=== PATIENT | female | born 1975 | race Caucasian/White ===

== ENCOUNTER → 2017-05-26 12:43 | Outpatient (CLI) | payer BC, SELFPAY ==
--- NOTE | 2017-05-26 15:03 | US_ITS ---
US thyroid HISTORY: ITS.REASON: ENLARGED LYMPH NODE ORDERING PHYSICIAN: Daphnie Rivas PATIENT AGE: 42 years COMPARISON: None FINDINGS: Right lobe: 4.8 x 1.8 x 2.2 cm. There is a 13 mm well-circumscribed slightly hypoechoic nodule in the upper pole 15 mm mixed echogenic nodule in the lower pole well circumscribed. 13 mm somewhat less defined isoechoic nodule in the lower pole. Left lobe: 4.3 x 1.8 x 1.5 cm. 19 x 16 mm isoechoic nodule were circumscribed in the mid polar region In the right lateral neck there are small lymph nodes measuring 8 mm and 10 mm. IMPRESSION: Bilateral solid thyroid nodules as detailed above. No one particular nodule has malignant features. Recommend short-term follow-up in 6 months to confirm stability. Small nodes are present in the right neck region which may be better evaluated with CT if clinically warranted
== END ==
PROVIDERS: Family Provider Emergency Medicine; PCP Nurse Practitioner Family; Visit Provider Nurse Practitioner Family
DX: R59.0 Localized enlarged lymph nodes (principal)
CPT/HCPCS: 76536

== ENCOUNTER 2017-06-20 20:32 | Emergency (ER) | payer BC, SELFPAY ==
[2017-06-20 20:45] VITALS: BP 150/93; PULSE 113; RESP 20; TEMP 36.6; O2SAT 96; BMI 37.3
--- NOTE | 2017-06-20 21:10 | HMH.EDUTC ---
[facility] [place] Disposition Clinical Impression: Diarrhea Qualifiers: Diarrhea type: unspecified type Qualified Code(s): R19.7 - Diarrhea, unspecified Disposition: Home, Self-Care Condition on Discharge: Good Instructions: Diarrhea, Loperamide, Diarrhea (Alternative Therapy), Diarrhea (Alternative Therapy) Additional Instructions: ? Drink extra fluids with and between meals. If you have difficulty drinking, try very small amounts of water or suck on ice chips. ? Avoid fruit juices, as these do not replace minerals and can actually increase diarrhea. ? Children and adults can use sports drinks to replenish electrolytes. Younger children and infants should use products formulated for children, like oral rehydration solutions. ? Eat food in small amounts and let your stomach recover. ? Get lots of rest. You may feel tired or weak. ? Check with your doctor before taking medications or giving them to children. Never give aspirin to children or teenagers with a viral illness. This can cause Alec syndrome, a potentially life-threatening condition. Bulky foods such as peanut butter, bananas and dry toast may be easier for your stomach to tolerate Follow up with family doctor on Friday to see if results are complete REturn if needed Follow up with family doctor or ER in 12-48 hours if worsening of diarrhea or any blood noted in stool Referrals: Alberto Lim MD [Primary Care Provider] - Forms: Work/School Release Time of Disposition: 21:23 Medical Decision Making - Medical Records Medical records reviewed: Yes: I reviewed the patient's medical records. Vital Signs: 06/20/17 20:45 Temperature 97.8 F Temperature Source Temporal Artery Scan Pulse Rate [Right] 113 H Respiratory Rate 20 Blood Pressure [Right Arm] 150/93 Blood Pressure Mean [Right Arm] 112 Blood Pressure Source [Right Arm] Automatic Cuff Blood Pressure Position [Right Arm] Sitting 02 Sat by Pulse Oximetry 96 Oxygen Delivery Method Room Air - Ino Inquiry Pt receiving controlled substance: No Ino was queried for this patient: No - Reevaluation(s) Time: 21:19 Reevaluation #1: Patient had collected stool at home, diarrhea panel ordered and patient stool collected and sent to lab Patient advised to follow up with family doctor on Friday for results no eppisodes of diarrhea since arrival at [facility] no distress [facility] [place] HPI - General Stated complaint: stomach virus Mode of Arrival: Ambulatory Source of Information: Patient Limitations: No Limitations Description of Symptoms (Recalled from Triage Doc. by RN): DIARRHEA HEENT Symptoms (Recalled from RN notes): No Resp Symptoms (Recalled from RN notes): No Skin Symptoms (Recalled from RN notes): No MS Symptoms (Recalled from RN notes): No Functional Status (Recalled from RN notes): N - History of Present Illness Provider Complaint: Patient state that she began having diarrhea yesterday States that she has continued to have diarrhea State that she is not sure if she may have a stomach virus or what State that she collected a stool specimen at home State that she has not had any blood in her stool just loose and watery stool - Related Data Home Medications Medication Instructions Recorded Confirmed alprazolam 0.25 mg tablet 0.25 mg PO TID tab 05/15/17 aspirin 325 mg tablet 325 mg PO .QDAY tab 05/15/17 atenolol 50 mg tablet 50 mg NG-TUBE Q24H tab 05/15/17 atorvastatin 10 mg tablet 10 mg PO ONCE 05/15/17 epinephrine 0.3 mg/0.3 mL 0.3 mg IM ONCE 05/15/17 injection, auto-injector escitalopram 20 mg tablet 20 mg PO .QDAY tab 05/15/17 fluticasone 50 mcg/actuation nasal 50 mcg INTRANASAL BID PRN 05/15/17 spray,suspension ibuprofen 600 mg tablet 600 mg PO Q4-6H PRN 05/15/17 meclizine 25 mg tablet 25 mg PO BID 05/15/17 pantoprazole 40 mg tablet,delayed 40 mg PO QAM 05/15/17 release pramoxine 1 % topical foam 1 applic VT BID 05/15/17 ranitidine 150 mg tablet 150 mg PO BID tab 05/15/17 sammie
[2017-06-20 21:16] VITALS: BP 150/93; PULSE 110; RESP 20; TEMP 36.6
--- NOTE | 2017-06-20 21:17 | ED_ITS ---
[facility] [place] Clinical Impression: Diarrhea Qualifiers: Diarrhea type: unspecified type Qualified Code(s): R19.7 - Diarrhea, unspecified Disposition: Home, Self-Care Condition on Discharge: Good Instructions: Diarrhea, Loperamide, Diarrhea (Alternative Therapy), Diarrhea ( Alternative Therapy) Additional Instructions: ? Drink extra fluids with and between meals. If you have difficulty drinking, try very small amounts of water or suck on ice chips. ? Avoid fruit juices, as these do not replace minerals and can actually increase diarrhea. ? Children and adults can use sports drinks to replenish electrolytes. Younger children and infants should use products formulated for children, like oral rehydration solutions. ? Eat food in small amounts and let your stomach recover. ? Get lots of rest. You may feel tired or weak. ? Check with your doctor before taking medications or giving them to children. Never give aspirin to children or teenagers with a viral illness. This can cause Alfa?s syndrome, a potentially life-threatening condition. Bulky foods such as peanut butter, bananas and dry toast may be easier for your stomach to tolerate Follow up with family doctor on Friday to see if results are complete REturn if needed Follow up with family doctor or ER in 12-48 hours if worsening of diarrhea or any blood noted in stool Referrals: Alberto Lim MD [Primary Care Provider] - Forms: Work/School Release Time of Disposition: 21:23 Medical Decision Making - Medical Records Medical records reviewed: Yes: I reviewed the patient's medical records. Vital Signs: 06/20/17 20:45 Temperature 97.8 F Temperature Source Temporal Artery Scan Pulse Rate [Right] 113 H Respiratory Rate 20 Blood Pressure [Right Arm] 150/93 Blood Pressure Mean [Right Arm] 112 Blood Pressure Source [Right Arm] Automatic Cuff Blood Pressure Position [Right Arm] Sitting 02 Sat by Pulse Oximetry 96 Oxygen Delivery Method Room Air - Ino Inquiry Pt receiving controlled substance: No Ino was queried for this patient: No - Reevaluation(s) Time: 21:19 Reevaluation #1: Patient had collected stool at home, diarrhea panel ordered and patient stool collected and sent to lab Patient advised to follow up with family doctor on Friday for results no eppisodes of diarrhea since arrival at [facility] no distress [facility] [place] - General Stated complaint: stomach virus Mode of Arrival: Ambulatory Source of Information: Patient Limitations: No Limitations Description of Symptoms (Recalled from Triage Doc. by RN): DIARRHEA HEENT Symptoms (Recalled from RN notes): No Resp Symptoms (Recalled from RN notes): No Skin Symptoms (Recalled from RN notes): No MS Symptoms (Recalled from RN notes): No Functional Status (Recalled from RN notes): N - History of Present Illness Provider Complaint: Patient state that she began having diarrhea yesterday States that she has continued to have diarrhea State that she is not sure if she may have a stomach virus or what State that she collected a stool specimen at home State that she has not had any blood in her stool just loose and watery stool - Related Data Home Medications Medication Instructions Recorded Confirmed alprazolam 0.25 mg tablet 0.25 mg PO TID tab 05/15/17 aspirin 325 mg tablet 325 mg PO .QDAY tab 05/15/17 atenolol 50 mg tablet 50 mg NG-TUBE Q24H tab 05/15/17 atorvastatin 10 mg
[2017-06-21 00:29] LABS: Adenovirus F 40/41, stool Not Detected (NotDetected); Astrovirus Not Detected (NotDetected); Campylobacter Not Detected (NotDetected); Clostridium Difficile A/B, PCR Not Detected (NotDetected); Cyclospora Cayetanesis Not Detected (NotDetected); Entamoeba histolytica Not Detected (NotDetected); Enteroaggregative E coli Not Detected (NotDetected); Enteropathogenic E coli Not Detected (NotDetected); Enterotoxigenic E coli Not Detected (NotDetected); Giardia lamblia Not Detected (NotDetected); Norovirus Not Detected (NotDetected); Plesimonas Shigalloides, PCR Not Detected (NotDetected); Rotavirus A Not Detected (NotDetected); Salmonella, PCR Not Detected (NotDetected); Sapovirus Not Detected (NotDetected); Shiga-like toxin E coli Not Detected (NotDetected); Shigella Enterovasive E coli Not Detected (NotDetected); Vibrio Cholerae Not Detected (NotDetected); Vibrio, PCR Not Detected (NotDetected); Yersinia Entercolitica, PCR Not Detected (NotDetected)
[2017-06-21 00:33] LABS: Cryptosporidium Detected (NotDetected)
== END 2017-06-20 21:24 | disposition home or self-care (01) ==
PROVIDERS: Emergency Provider Nurse Practitioner; Family Provider Emergency Medicine; PCP Emergency Medicine
DX: R19.7 Diarrhea, unspecified (principal); K21.9 Gastro-esophageal reflux disease without esophagitis; E78.5 Hyperlipidemia, unspecified; F17.210 Nicotine dependence, cigarettes, uncomplicated; F32.9 Major depressive disorder, single episode, unspecified; Z79.899 Other long term (current) drug therapy; Z79.82 Long term (current) use of aspirin; Z88.6 Allergy status to analgesic agent; Z88.1 Allergy status to other antibiotic agents
CPT/HCPCS: 87507; 99202

== ENCOUNTER → 2017-11-10 08:34 | Outpatient (CLI) | payer BC, SELFPAY ==
--- NOTE | 2017-11-10 08:34 | CA_ITS ---
PROCEDURE: 2-D M-mode and color Doppler study INDICATIONS FOR THE TEST: Chest pain X COPD Heart Murmur Tobacco SmokingX PalpitationsX FatigueX Syncope Edema Hypertension Diabetes Mellitus Rheumatic Fever SOB DOEXObesityXHyperlipidemia Family History HD Additional History PATIENT INFORMATION HEIGHT:63 WEIGHT:213 GENDER: Female B/P:111/52 2-D/M-MODE INTERPRETATION: 2-D MEASUREMENTS OBSERVED VALUES IN CMS Right Ventricular Dimension (RVDd) 2.2 Interventricular Septum (Thickness)(IVsd) .7 Left Ventricular Internal Dimensions(LVIDd) 5.5 Left Ventricular Posterior Wall (Thickness)(LVPWd) .9 Aortic Root 3.1 Aortic Cusp Separation 1.5 Left Atrial Dimensions (LAD) 3.4 2D 1. Left atrium is qualitatively mildly enlarged, left ventricle is normal size, there is no concentric left ventricular hypertrophy, visually estimated ejection fraction 55% with no obvious regional wall motion abnormality. 2. The right atrium and right ventricle are relatively normal size and function. 3. The aortic, mitral and tricuspid valvular grossly normal. 4. The pulmonic valve is poorly visualized. 5. No significant pericardial effusion noted. DOPPLER INTERROGATION: Doppler interrogation of the aortic, mitral and tricuspid valvular presence of mild mitral and tricuspid regurgitation, tricuspid and jet velocity insufficient for calculation of the right ventricular systolic pressure, diastolic parameters are inconclusive. CONCLUSION: 1. Mildly enlarged left atrium, normal left ventricular size, visually estimated ejection fraction 55% with no obvious regional wall motion abnormality, diastolic parameters are inconclusive. 2. Mild mitral and tricuspid regurgitation 3. No significant pericardial effusion noted.
== END ==
PROVIDERS: Family Provider Emergency Medicine; PCP Internal Medicine; Visit Provider Internal Medicine
DX: R07.9 Chest pain, unspecified (principal); R00.2 Palpitations; R06.83 Snoring; R40.0 Somnolence; R53.83 Other fatigue; E66.9 Obesity, unspecified; F17.200 Nicotine dependence, unspecified, uncomplicated; R63.5 Abnormal weight gain
CPT/HCPCS: 93306; 95806

== ENCOUNTER → 2017-12-23 10:44 | Outpatient (CLI) | payer BC, SELFPAY ==
--- NOTE | 2017-12-23 10:49 | XR_ITS ---
XR hip LT 2-3V w/pelvis HISTORY: ITS.REASON: S/P FALL, LT HIP PAIN ORDERING PHYSICIAN: Thien Lam PATIENT AGE: 42 years COMPARISON: None FINDINGS: No fracture or dislocation is evident. No significant degenerative change. No lytic or blastic change. Unremarkable soft tissues. There is an os acetabulum as a normal variant. There is mild sclerosis of left SI joint. Small calcific density is present along the lateral aspect of the proximal thigh within the soft tissues IMPRESSION: No acute finding
== END ==
PROVIDERS: PCP Internal Medicine; Visit Provider Internal Medicine
DX: M25.552 Pain in left hip (principal); R10.2 Pelvic and perineal pain
CPT/HCPCS: 73502

== ENCOUNTER → 2018-01-01 09:19 | Outpatient (CLI) | payer BC, SELFPAY ==
--- NOTE | 2018-01-01 09:24 | US_ITS ---
US breast LT complete INDICATION: Palpable abnormality in the upper left chest ORDERING PHYSICIAN: Thien Lam PATIENT AGE: 42 years COMPARISON: None TECHNIQUE: Complete ultrasound left breast with axilla FINDINGS: There is an oval area of slight decreased echogenicity which is homogeneous within the subcutaneous tissues in the left breast toward the upper chest. This measures 1.8 x 1.7 x 0.6 cm. No posterior shadowing. This is likely related to a lipoma. The breast is an otherwise unremarkable appearance. IMPRESSION: Palpable abnormality corresponds to what appears to represent a lipoma BI-RADS Category: 2 Benign Finding(s) Negative ultrasound does not exclude the possibility of malignancy in the breast. Consider mammography for further evaluation if clinically warranted (A letter has been sent to the patient regarding results of the study.)
== END ==
PROVIDERS: Family Provider Emergency Medicine; PCP Internal Medicine; Visit Provider Internal Medicine
DX: N63.21 Unspecified lump in the left breast, upper outer quadrant (principal)
CPT/HCPCS: 76641

== ENCOUNTER → 2018-02-03 11:17 | Outpatient (CLI) | payer BC, SELFPAY ==
--- NOTE | 2018-02-03 11:24 | XR_ITS ---
EXAM: XR lumbar spine min 4V HISTORY: ITS.REASON: BACK PAIN ORDERING PHYSICIAN: Thien Lam PATIENT AGE: 42 years COMPARISON: None FINDINGS: Normal alignment. No fracture or dislocation. No lytic or blastic change. Mild endplate osteophytes are present at L4 and L5. There is sclerosis of the inferior aspect of the SI joint on the left. No lytic or blastic change. IMPRESSION: 1. Mild lumbar spondylosis. 2. Sclerosis of left SI joint
== END ==
PROVIDERS: PCP Internal Medicine; Visit Provider Internal Medicine
DX: M54.89 Other dorsalgia (principal)
CPT/HCPCS: 72110

== ENCOUNTER → 2018-04-28 15:12 | Outpatient (POV) | payer BC, SELFPAY | PROVIDERS: Visit Provider Dermatology | DX: Z00.00 Encounter for general adult medical examination without abnormal findings (principal) ==

== ENCOUNTER → 2018-05-21 12:47 | Outpatient (CLI) | payer BC, SELFPAY ==
--- NOTE | 2018-05-21 13:27 | US_ITS ---
US transvaginal HISTORY: Pelvic pain ITS.REASON: PELVIC PAIN ORDERING PHYSICIAN: Thien Lam PATIENT AGE: 42 years Comparison: None FINDINGS: There has been a prior hysterectomy. Vaginal cuff has an unremarkable appearance. The left ovary is 2.4 x 1.4 cm in the right ovary is 2.3 x 2.4 cm. No adnexal mass. No pelvic fluid. IMPRESSION: Prior hysterectomy otherwise unremarkable pelvic ultrasound
--- NOTE | 2018-05-21 13:27 | US_ITS ---
US thyroid HISTORY: Follow-up thyroid nodules ITS.REASON: GOITER ORDERING PHYSICIAN: Thien Lam PATIENT AGE: 42 years Comparison: 05/26/2017 FINDINGS: The isthmus of the thyroid is thickened at 6 mm. The right lobe is 4.3 x 1.6 x 2.1 cm. There is a hypoechoic nodule in the upper pole which measures 13 x 10 mm not significantly changed. In the mid polar region there is a solid-appearing nodule at 1 cm unchanged. In the lower pole there is a mixed cystic and solid nodule which measures 1 cm. This nodule was not demonstrated on the previous exam. There is an additional 9 mm mixed nodule in the lower pole unchanged from previous study. An additional 5 mm hypoechoic nodule is present in the lower pole not readily apparent on the previous exam. The left lobe is 3.5 x 1.8 x 1.8 cm. There is a 2.2 cm solid-appearing nodule in the mid polar region not significant change. IMPRESSION: Bilateral thyroid nodules as described above most of which are unchanged. A new partially cystic nodules present in the lower polar region on the right measuring 1 cm. Continued follow-up is recommended
== END ==
PROVIDERS: PCP Internal Medicine; Visit Provider Internal Medicine
DX: E04.1 Nontoxic single thyroid nodule (principal); R10.2 Pelvic and perineal pain; Z85.43 Personal history of malignant neoplasm of ovary
CPT/HCPCS: 76536; 76830

== ENCOUNTER → 2018-06-16 10:11 | Outpatient (POV) | payer BC, SELFPAY | PROVIDERS: Visit Provider Otolaryngology | DX: Z00.00 Encounter for general adult medical examination without abnormal findings (principal) ==

== ENCOUNTER → 2018-07-23 08:16 | Outpatient (CLI) | payer BC, SELFPAY ==
--- NOTE | 2018-07-23 08:18 | CT_ITS ---
CT abdomen pelvis wo con CLINICAL INDICATION: ITS.REASON: RT FLANK PAIN, HEMATURIA ORDERING PHYSICIAN: Thien Lam PATIENT AGE: 43 years COMPARISON: 08/28/2011 TECHNIQUE: Axial images obtained with sagittal and coronal reformats. All CT scans at the facility use one or more dose reduction, viz: automated exposure control, ma/kV adjustment per patient size (including targeted exams where dose is matched to indication, i.e. head), or iterative reconstruction technique. PROCEDURE: Oral Contrast: None IV Contrast: None . FINDINGS: No acute finding in the lung bases. Fatty liver. Unremarkable appearing gallbladder. The spleen, adrenal glands, and pancreas have an unremarkable unenhanced CT appearance. No renal or ureteral calculi. No evidence of appendicitis or intestinal obstruction or free air. Post hysterectomy changes. No pelvic mass abnormal fluid collection or focal inflammatory change of the pelvis. No acute bony findings. There is tiny umbilical hernia containing fat IMPRESSION: No acute abdominal or pelvic findings. Fatty liver
== END ==
PROVIDERS: PCP Internal Medicine; Visit Provider Internal Medicine
DX: R10.9 Unspecified abdominal pain (principal); N20.0 Calculus of kidney; R31.9 Hematuria, unspecified
CPT/HCPCS: 74176

== ENCOUNTER → 2018-11-21 11:27 | Outpatient (CLI) | payer BC, SELFPAY ==
[2018-11-21 14:22] LABS: Alanine Aminotransferase 43 U/L (12-78); Albumin Level 3.9 gm/dL (3.4-5.0); Albumin/Globulin Ratio 1.1 (1.1-1.8); Alkaline Phosphatase 76 U/L (46-116); Anion Gap 14.2 mEq/L (5-15); Aspartate Amino Transferase 18 U/L (15-37); Bilirubin,Total 0.3 mg/dL (0.2-1.0); Blood Urea Nitrogen 16 mg/dL (7-18); Calcium 9.4 mg/dL (8.5-10.1); Carbon Dioxide 29 mmol/L (21.0-32.0); Chloride 103 mmol/L (98-107); Chol/HDL Ratio 5.9 (1-3.5); Cholesterol 252 mg/dL (140-200); Creatinine,Serum 0.77 mg/dL (0.55-1.02); Estimated Glomerular Filt Rate 81 ml/min (>60); Ferritin 106 ng/mL (8-388); Free T4 (Free Thyroxine) 0.96 ng/dl (0.76-1.46); GFR (African American) 99 ML/MIN (>60); Globulin 3.7 gm/dl (1.3-3.2); Glucose 67 mg/dL (74-106); HDL Cholesterol 43 mg/dL (29-89); LDL Cholesterol 170 mg/dL (0-130); Potassium 4.2 mmoL/L (3.5-5.1); Sodium 142 mmol/L (136-145); Thyroid Stimulating Hormone 0.46 uIU/ml (0.358-3.740); Total Protein,Serum 7.6 gm/dL (6.4-8.2); Triglycerides 194 mg/dL (30-200); VLDL Cholesterol 39 mg/dL (0-40)
[2018-11-22 17:02] LABS: Triiodothyronine (T3) Free 3.6 pg/mL (2.0-4.4)
== END ==
LOC: LAB 11:28 → LAB.DROPOF 11-23 10:01
PROVIDERS: Visit Provider Internal Medicine
DX: E04.9 Nontoxic goiter, unspecified (principal); E78.5 Hyperlipidemia, unspecified; H81.03 Meniere's disease, bilateral; K21.9 Gastro-esophageal reflux disease without esophagitis; I49.49 Other premature depolarization; D50.9 Iron deficiency anemia, unspecified; F41.9 Anxiety disorder, unspecified
CPT/HCPCS: 80053; 80061; 82728; 84439; 84443; 84481

== ENCOUNTER → 2018-11-25 12:45 | Outpatient (CLI) | payer BC, SELFPAY ==
--- NOTE | 2018-11-25 12:47 | US_ITS ---
PROCEDURE: US BREAST RT COMPLETE CLINICAL INDICATION: BREAST NODULE AXILLARY AREA COMPARISON: BREASTLT US breast LT complete from 01/01/2018 FINDINGS: No malignant appearing mass. No cysts are evident. There are scattered hyperechoic foci in the subcutaneous tissue at 3 o'clock measuring 6 x 4 mm and at 9 o'clock measuring 8 x 6 mm consistent with small lipomas. Palpable abnormality is reported in the axilla however no sonographic abnormalities are apparent. There is a 2 cm lymph node in the right axilla. IMPRESSION: Unremarkable ultrasound of the right breast and axilla. Consider CT for further evaluation if there are indeed palpable nodules in the axilla Dictated by: Bonilla Tafoya MD 11/25/2018 14:10 Signed by: <Electronically signed by Bonilla Tafoya MD in [place]> 11/25/2018 14:10
== END ==
PROVIDERS: PCP Internal Medicine; Visit Provider Internal Medicine
DX: N63.11 Unspecified lump in the right breast, upper outer quadrant (principal)
CPT/HCPCS: 76641

== ENCOUNTER → 2018-12-09 13:27 | Outpatient (CLI) | payer BC, SELFPAY ==
--- NOTE | 2018-12-09 13:34 | CT_ITS ---
PROCEDURE: CT CHEST WO CON CLINICAL INDICATION: RT AXILLARY NODULE COMPARISON: No exams were available for comparison TECHNIQUE: Axial images obtained with sagittal and coronal reformats. All CT scans at the facility use one or more dose reduction, viz: automated exposure control, ma/kV adjustment per patient size (including targeted exams where dose is matched to indication, i.e. head), or iterative reconstruction technique. FINDINGS: There is a 1.4 cm hypodense nodule within the right lobe of the thyroid gland. A BB is placed within the palpable area of the right axillary region. No discrete soft tissue abnormality is evident at this region. There are only a few small axillary lymph nodes present. No dominant adenopathy. No abnormal fluid collection. Small nodes are present in both axilla. No mediastinal or hilar mass or adenopathy. There is an 8 mm noncalcified nodule in the superior segment of the right lower lobe. A calcified granuloma is present in the superior segment of the left lower lobe. The remaining lungs are clear. Upper abdominal images are unremarkable. No acute bony findings. IMPRESSION: 1. No evidence of axillary adenopathy or mass. No abnormalities that would correspond to the placed BB in the right axillary region 2. 8 mm noncalcified nodule right lower lobe. Suggest 6 month follow-up in this patient with a positive smoking history Dictated by: Bonilla Tafoya MD 12/10/2018 06:43 Signed by: <Electronically signed by Bonilla Tafoya MD in [place]> 12/10/2018 06:43
== END ==
PROVIDERS: PCP Internal Medicine; Visit Provider Internal Medicine
DX: N63.10 Unspecified lump in the right breast, unspecified quadrant (principal)
CPT/HCPCS: 71250

== ENCOUNTER → 2019-04-12 08:00 | Outpatient (CLI) | payer BC, SELFPAY ==
--- NOTE | 2019-04-12 08:04 | CT_ITS ---
PROCEDURE: CT CHEST WO CON CLINICAL INDICATION: RT LUNG NODULE follow-up COMPARISON: CT CHEST WO CON from 12/09/2018 TECHNIQUE: Axial images obtained with sagittal and coronal reformats. All CT scans at the facility use one or more dose reduction, viz: automated exposure control, ma/kV adjustment per patient size (including targeted exams where dose is matched to indication, i.e. head), or iterative reconstruction technique. FINDINGS: HEART: Unremarkable. Normal heart size. No significant pericardial effusion. MEDIASTINAL AND HILAR STRUCTURES: No mediastinal or hilar mass evident. No dominant adenopathy. PULMONARY ARTERIES: No pulmonary embolus evident. AORTA: No acute finding. No thoracic aortic aneurysm or dissection evident LUNGS:The lung jacobs are well expanded. There is a stable 7 8 mm noncalcified nodule superior segment right lower lobe subpleural location. There is a small calcified granuloma left lower lobe. PLEURAL SPACES: No significant effusion. No evidence of pneumothorax. BONY STRUCTURES: No acute bony abnormalities apparent. LYMPH NODES: No enlarged lymph nodes evident. UPPER ABDOMEN: Unremarkable. ADDITIONAL FINDINGS: There is a stable 1.4 cm hypodense lesion right lobe of the thyroid IMPRESSION: Stable noncalcified nodule right lower lobe with no other significant abnormality noted. Consider no other follow-up CT scan of the chest in 6 to 12 months in view of the smoking history Dictated by: Dr. Jc Bello MD 04/12/2019 14:[address] Jc Bello MD in [place] 04/12/2019 14:00
== END ==
PROVIDERS: PCP Internal Medicine; Visit Provider Internal Medicine
DX: R91.1 Solitary pulmonary nodule (principal)
CPT/HCPCS: 71250

== ENCOUNTER → 2019-09-27 11:39 | Outpatient (CLI) | payer BC, SELFPAY ==
--- NOTE | 2019-09-27 11:46 | XR_ITS ---
PROCEDURE: XR LUMBAR SPINE MIN 4V CLINICAL INDICATION: LOW BACK PAIN COMPARISON: [id number] XR lumbar spine min 4V from 02/03/2018 FINDINGS: No fracture or dislocation. Normal alignment. Minimal ventral osteophytes at L1-L2 L3-L4 and L5. Degenerative disc disease is noted in the lower thoracic spine. There is sclerosis of the left SI joint. Small calcification overlies the mid aspect of the left kidney suggesting small left renal stone at 3 mm. IMPRESSION: Degenerative changes, no acute finding Possible left nephrolithiasis Dictated by: Bonilla Tfaoya MD 09/27/2019 12:08 Electronically signed by Bonilla Tafoya MD in [place] 09/27/2019 12:08
== END ==
PROVIDERS: PCP Internal Medicine; Visit Provider Internal Medicine
DX: M54.5 Low back pain (principal)
CPT/HCPCS: 72110

== ENCOUNTER → 2019-11-02 13:03 | Outpatient (CLI) | payer BC, SELFPAY ==
--- NOTE | 2019-11-02 13:09 | MM_ITS ---
PROCEDURE: MM DIG SCREENING MAMM BI W/CAD Digital Breast Tomosynthesis Included CLINICAL INDICATION: SCREENING Screening for breast cancer COMPARISON: DIGMAMMS MAMMOGRAM SCREEN-DIRECTOR EDUCATION N/C from 11/22/2005 DIGMAMMDX MAMMOGRAM DX-DIRECTOR EDUCATION N/C from 06/23/2007 DMDB DIGITAL MAMM-DX BILATERAL from 07/19/2010 US BREAST RT COMPLETE from 11/25/2018 TECHNIQUE: Standard CC and MLO images and 3D Tomosynthesis was obtained. R2 CAD reviewed. FINDINGS: There is average fibroglandular tissue. The breast tissue density has decreased compared to the multiple previous exams. No malignant appearing mass or malignant-appearing microcalcification is evident. There is a 12 by 5 mm nodular opacity in the upper central aspect of the right breast. This may been present previously but obscured by overlying fibroglandular tissue. Spot compression views and ultrasound is recommended. No other significant anomalies are evident. IMPRESSION: BI-RAD Category: 0 Need Additional Imaging Evaluation FOLLOW-UP: IMM Immediate Follow-up Recommended (A letter has been sent to the patient regarding results of the study.) Dictated by: Bonilla Tafoya MD 11/02/2019 14:26 Electronically signed by Bonilla Tafoya MD in [place] 11/02/2019 14:26
--- NOTE | 2019-11-02 13:11 | CT_ITS ---
PROCEDURE: CT CHEST WO CON CLINICAL INDICATION: RT LUNG NODULE Follow-up lung nodule, increasing shortness of air COMPARISON: CT CHEST WO CON from 04/12/2019 TECHNIQUE: Axial images obtained with sagittal and coronal reformats. All CT scans at the facility use one or more dose reduction, viz: automated exposure control, ma/kV adjustment per patient size (including targeted exams where dose is matched to indication, i.e. head), or iterative reconstruction technique. FINDINGS: 1.5 cm hypodense nodule involves the right lobe of the thyroid gland and does not appear significantly changed. There is a small precarinal lymph node which is stable. Normal heart size. There is a 7 mm noncalcified nodule in the superior segment of the right lower lobe which is not significantly changed. Calcified nodules noted on the left. No new nodules are evident. No acute bony anomalies. There is a nodular opacity noted in the right breast laterally at 12 mm. Please see mammogram report of the same day for further recommendations. Upper abdominal images show mild fatty liver IMPRESSION: . 1. No acute finding. 2. Stable 7 mm nodule in the right upper lobe. 3. Other nonacute findings as described above. Dictated by: Bonilla Tafoya MD 11/03/2019 10:45 Electronically signed by Bonilla Tafoya MD in [place] 11/03/2019 10:45
== END ==
PROVIDERS: PCP Internal Medicine; Visit Provider Internal Medicine
DX: Z12.31 Encounter for screening mammogram for malignant neoplasm of breast (principal); R91.1 Solitary pulmonary nodule
CPT/HCPCS: 71250; 77063; 77067

== ENCOUNTER → 2019-11-12 13:46 | Outpatient (CLI) | payer BC, SELFPAY ==
--- NOTE | 2019-11-12 13:52 | US_ITS ---
PROCEDURE: MM DIG MAMM DX UNILAT RT CAD Digital Breast Tomosynthesis Included CLINICAL INDICATION: R BREAST NODULE Abnormal mammogram COMPARISON: MG DIGMAMMDX MAMMOGRAM DX-ARCHITECTURE INTERNSHIP N/C from 06/23/2007 MG DMDB DIGITAL MAMM-DX BILATERAL from 07/19/2010 US US BREAST RT COMPLETE from 11/25/2018 MG MM DIG SCREENING MAMM BI W/CAD from 11/02/2019 US US BREAST RT COMPLETE from 11/12/2019 TECHNIQUE: Problem solving views along with right breast ultrasound FINDINGS: Spot views of the right breast in right MLO view demonstrates a persistent 15 x 11 x 7. The margins are fairly well-circumscribed. There is an additional 15 mm area of increased density in the inferior right breast probably due to overlapping fibroglandular tissue as noted on the mL view. Would recommend spot compression when the patient returns of this area Right breast ultrasound: At 12 o'clock there is a hypoechoic nodule measuring approximately 10 mm which may correspond to the mammographic abnormality. On certain images this shows some posterior acoustical shadowing. This is wider than tall but is not well-defined. This is mildly suspicious and biopsy is recommended. IMPRESSION: Suspicious 10 mm nodule in the 12 o'clock region of the right breast. Ultrasound-guided mammotome biopsy recommended. Also recommend spot compression view of the inferior nodular density as seen on the mL view BI-RAD Category: 4 Suspicious Abnormality - Biopsy Considered FOLLOW-UP: BIO Biopsy Recommended (A letter has been sent to the patient regarding results of the study.) Dictated b Bonilla Tafoya MD 11/18/2019 18:32 Bonilla Tafoya MD in [place] 11/18/2019 18:32
== END ==
PROVIDERS: PCP Internal Medicine; Visit Provider Internal Medicine
DX: R92.8 Other abnormal and inconclusive findings on diagnostic imaging of breast (principal)
CPT/HCPCS: 76641; 77061; 77065; G0279

== ENCOUNTER 2019-11-15 14:06 | Emergency (ER) | payer BC, SELFPAY ==
[2019-11-15 14:54] VITALS: BMI 38.4
[2019-11-15 15:01] VITALS: BP 109/68; PULSE 67; RESP 20; TEMP 36.6; O2SAT 99; BMI 38.4
--- NOTE | 2019-11-15 15:24 | HMH.EDUTC ---
[facility] Impression: Viral syndrome Disposition: Home, Self-Care Condition on Discharge: Good Instructions: DI for Chronic Fatigue Syndrome, Preventing the Spread of Coronavirus Discharge Instructions Additional Instructions: Drink plenty of fluids. Take tylenol for pain or fever. Take the medications as directed. Follow up with your regular doctor. GO TO THE ER FOR ANY WORSENING SYMPTOMS FOLLOW THE DIRECTIONS ON THE COVID-19 HAND OUT THAT WE GAVE YOU REGARDING SELF-ISOLATION UNTIL YOU KNOW YOUR COVID-19 RESULTS Prescriptions: Albuterol Sulfate [Albuterol Sulfate Hfa] 2 puffs IH Q6HP PRN 30 Days #1 [email or web address] PRN Reason: Shortness Of Breath Transmission Status: Received by [facility] #[id number] Amoxicillin/Potassium Clav [Augmentin 875-125 Tablet] 1 tab PO Q12H 10 Days #20 tab Transmission Status: Received by [facility] #[id number] Referrals: Thien Lam [Primary Care Provider] - Time of Disposition: 15:26 Medical Decision Making - Medical Records Medical records reviewed: No: I reviewed the patient's medical records. - Ino Inquiry Pt receiving controlled substance: No Vital Signs: 11/15/19 15:01 11/15/19 15:42 Temperature 97.9 F 97.9 F Temperature Source Oral Pulse Rate 67 Pulse Rate [Right Brachial] 67 Respiratory Rate 20 20 Blood Pressure 109/68 L Blood Pressure [Right Arm] 109/68 L Blood Pressure Mean [Right Arm] 81 Blood Pressure Source [Right Arm] Automatic Cuff Blood Pressure Position [Right Arm] Sitting 02 Sat by Pulse Oximetry 99 Oxygen Delivery Method Room Air - Lab Data Lab results reviewed: Yes: I reviewed the patient's lab results. Orders (Tests/Meds): ORDERS Category Date Time Status SARS-CoV-2, CARLYN Stat Lab 11/15/19 15:05 Received [facility] [place] - General Stated complaint: sob, FEVER Time Seen by Provider: 11/15/19 15:24 Mode of Arrival: Ambulatory Source of Information: Patient Limitations: No Limitations Description of Symptoms (Recalled from Triage Doc. by RN): PATIENT C/O SHORTNESS OF BREATH, DRY COUGH, PLEURITIC PAIN AND RUNNY NOSE SINCE 11/05. PATIENT RETURNED FROM [place] ON 11/03. HER 'S COVID ANTIBODY WAS RECENTLY POSITIVE. HEENT Symptoms (Recalled from RN notes): No Resp Symptoms (Recalled from RN notes): No Skin Symptoms (Recalled from RN notes): No MS Symptoms (Recalled from RN notes): No Functional Status (Recalled from RN notes): WNL - History of Present Illness Provider Complaint: She c/o body aches, cough, fever up to 102, shortness of breath, and generally feeling very bad for the past 3 days. She denies any known exposure to COVID-19, but she did travel to [place] last week. - Related Data Home Medications Medication Instructions Recorded Confirmed aspirin 325 mg tablet 325 mg PO .QDAY tab 05/15/17 05/24/19 pantoprazole 40 mg tablet,delayed 40 mg PO QAM 05/15/17 05/24/19 release atenoloL [Atenolol 50mg Tab] 50 mg PO DAILY 02/13/19 05/24/19 alprazolam 0.25 mg tablet 0.25 mg PO QID tab 05/24/19 05/24/19 atorvastatin 10 mg tablet 10 mg PO DAILY tab 05/24/19 05/24/19 fluticasone propionate 50 2 spray INTRANASAL DAILY 05/24/19 05/24/19 mcg/actuation nasal spray,suspension meclizine 25 mg tablet 25 mg PO BID PRN 05/24/19 05/24/19 Previous Rx's Medication Instructions Recorded carbamazepine 100 mg chewable 100 mg PO BID #60 tab 05/24/19 tablet Benzonatate [Tessalon Perle 100mg 100 mg PO TID #30 cap 06/24/19 Cap] cephALEXin [Keflex 500mg Cap] 500 mg PO TID #30 cap 06/24/19 predniSONE [Prednisone 20mg 20 mg PO BID #10 tab 06/24/19 Tab] Brompheniramine/Pseudoephed/Dm 5 ml PO Q6HP PRN #240 syrup 06/27/19 [Bromfed Dm Cough Syrup] Albuterol Sulfate [Albuterol 2 puffs IH Q6HP PRN 30 Days #1 11/15/19 Sulfate Hfa] hfa.aer.ad Amoxicillin/Potassium Clav 1 tab PO Q12H 10 Days #20 tab 11/15/19 [Augmentin 875-125 Tablet] Allergies Allergy/AdvReac Type S
[2019-11-15 15:42] VITALS: BP 109/68; PULSE 67; RESP 20; TEMP 36.6; O2SAT 99
[2019-11-17 13:21] LABS: Covid-19 Nasal PCR Sendout Lex Not Detected
== END 2019-11-15 15:47 | disposition home or self-care (01) ==
PROVIDERS: Emergency Provider Nurse Practitioner Family; PCP Internal Medicine
DX: B34.9 Viral infection, unspecified (principal); Z20.828 Contact with and (suspected) exposure to other viral communicable diseases; K21.9 Gastro-esophageal reflux disease without esophagitis; E78.5 Hyperlipidemia, unspecified; Z79.899 Other long term (current) drug therapy; F17.210 Nicotine dependence, cigarettes, uncomplicated; Z88.5 Allergy status to narcotic agent; Z88.8 Allergy status to other drugs, medicaments and biological substances
CPT/HCPCS: 99201; U0004

== ENCOUNTER → 2019-11-19 15:32 | Outpatient (CLI) | payer BC, SELFPAY ==
--- NOTE | 2019-11-19 15:35 | XR_ITS ---
PROCEDURE: XR CHEST 2V CLINICAL HISTORY: CHEST PAIN, SHORTNESS OF AIR COMPARISON: CR CXR CHEST(2 VIEWS-NOT PORTABLE) from 11/14/2016 CR CXR2V XR chest 2V from 10/23/2017 CR XR CHEST 2V from 06/27/[address] CHEST WO CON from 11/02/2019 FINDINGS: The cardiomediastinal silhouette and pulmonary vascularity are within normal limits. The lungs are clear without infiltrates, suspicious nodules, or pleural effusions. There is a calcified granuloma in the left lower lobe. No acute bony findings IMPRESSION: No acute findings. Dictated b Bonilla Tafoya MD 11/19/2019 16:13 Bonilla Tafoya MD in [place] 11/19/2019 16:13
--- NOTE | 2019-11-19 15:55 | ECG_ITS ---
APPROVED REPORT Exam: Resting ECG HR:67 bpm ECG Measurements Heart Rate 67 AXES AL 158 P 67 QRSd 88 QRS 48 QT 410 T 57 QTc 433 <Conclusion> Normal sinus rhythm Normal ECG Electronically signed by : Thien Lam, 11/19/2019 16:05:34
== END ==
PROVIDERS: PCP Internal Medicine; Visit Provider Internal Medicine
DX: R07.9 Chest pain, unspecified (principal); R06.02 Shortness of breath
CPT/HCPCS: 71046; 93005

== ENCOUNTER → 2019-11-25 09:47 | Outpatient (CLI) | payer BC, SELFPAY ==
--- NOTE | 2019-11-25 09:59 | CA_ITS ---
APPROVED REPORT EXAM: Comprehensive 2D, Doppler, and color-flow Echocardiogram Lubrication Supervisor: Jamila Ray RVT Ht: 5 ft 3 in Wt: 214lbs BSA: 1.99 BP: 109/68 mmHg Indications: SOA,CP,SMOKER,HLD,GERD 2D Dimensions LVOT 2.13 cm (M/F) 1.5-2.5 M-Mode Dimensions RVDd 2.29 cm (0.9-2.6) LVDd 4.93 cm (3.5-5.7) LVDs 2.97 cm (3.5-5.7) IVSd 1.15 cm (0.6-1.1) PWd 1.23 cm (0.6-1.1) EF (Teich) 70.10% FS 39.80% EDV (Teich) 114.40 mL ESV (Teich) 34.20 mL LV Diastology E/A Ratio 1.50 Mitral Valve MV A Velocity 63.00 (40-130 cm/s) Left Ventricle Left atrium is normal size, left ventricle is normal size, there is no concentric left ventricular hypertrophy, visually estimated ejection fraction 55% with no regional wall motion abnormality, diastolic parameters are within normal range. Right Ventricle Right atrium and right ventricle are normal size and contractility. Aortic Valve Aortic valve is grossly normal, there is no aortic stenosis or aortic insufficiency. Mitral Valve Mitral valve is grossly normal, there is trace mitral regurgitation. Tricuspid Valve Tricuspid valve grossly normal, there is trace tricuspid regurgitation. Pulmonic Valve Pulmonic valve is poorly visualized. Great Vessels Aortic root is normal size. Pericardium No significant pericardial effusion noted. Conclusion 1. Normal left ventricular size, preserved left ventricular systolic function, visually estimated ejection fraction 55% with no regional wall motion abnormality, diastolic parameters are within normal range. 2. Trace mitral and tricuspid regurgitation. 3. No significant pericardial effusion. Electronically signed by : Ethan Mclean, 11/25/2019 15:33:10
== END ==
PROVIDERS: PCP Internal Medicine; Visit Provider Internal Medicine
DX: R07.9 Chest pain, unspecified (principal); R06.02 Shortness of breath
CPT/HCPCS: 93306; 94010

== ENCOUNTER 2020-08-25 19:16 | Emergency (ER) | payer BC, SELFPAY ==
[2020-08-25 19:20] VITALS: BP 122/63; PULSE 77; RESP 20; TEMP 37.1; O2SAT 97; BMI 35.4
[2020-08-25 19:25] VITALS: BMI 35.5
--- NOTE | 2020-08-25 19:25 | XR_ITS ---
PROCEDURE INFORMATION: Exam: XR Left Foot Exam date and time: 08/25/2020 7:25 PM Age: 45 years old Clinical indication: Pain and injury or trauma; Blunt trauma; Left; Patient HX: Dropped something on foot, pain to top of foot TECHNIQUE: Imaging protocol: XR Left foot. Views: 3 or more views. COMPARISON: No relevant prior studies available. FINDINGS: Bones/joints: Moderate enthesopathy of the calcaneus. Soft tissues: Moderate forefoot soft tissue swelling. IMPRESSION: Moderate forefoot soft tissue swelling. No acute osseous abnormality.
--- NOTE | 2020-08-25 19:25 | XR_ITS ---
PROCEDURE INFORMATION: Exam: XR Left Ankle Exam date and time: 08/25/2020 7:25 PM Age: 45 years old Clinical indication: Pain and injury or trauma; Other: Dropped somthing on foot; Blunt trauma; Ankle; Left; Patient HX: Dropped something on foot, pain to top of foot TECHNIQUE: Imaging protocol: XR Left ankle. Views: 3 or more views. COMPARISON: No relevant prior studies available. FINDINGS: Bones/joints: Moderate calcaneus enthesopathy. Soft tissues: Moderate soft tissue swelling of the forefoot. IMPRESSION: Moderate forefoot soft tissue swelling without acute osseous abnormality.
--- NOTE | 2020-08-25 20:43 | HMH.EDUTC ---
[facility] [place] Disposition Clinical Impression: Foot contusion Qualifiers: Encounter type: initial encounter Laterality: left Qualified Code(s): S90.32XA - Contusion of left foot, initial encounter Disposition: Home, Self-Care Condition on Discharge: Good Instructions: DI for Foot Pain Additional Instructions: Weightbearing as tolerated rest Ice with cold pack for 20 minutes remove may repeat for comfort every hour Pierce wrap for support and swelling no less in the shower. Be sure not too tight but not to lose either Elevate with ankle above your heart as much as possible to help reduce swelling and therefore pain Ibuprofen every 6 hours as needed for pain or inflammation. If needs something more you can take Tylenol every 4 hours as needed as long as her primary care has told he was okayed for you to take both. If improving any do not need to follow-up you can bring begin exercising 2-3 weeks after injury. Follow-up immediately if new or worsening symptoms or no noticeable improvement over the next 3-5 days. call ortho Referrals: Thien Lam [Primary Care Provider] - Forms: Work/School Release Time of Disposition: 20:48 Medical Decision Making - Ino Inquiry Pt receiving controlled substance: No Vital Signs: 08/25/20 19:20 Temperature 98.8 F Temperature Source Oral Pulse Rate [Right Brachial] 77 Respiratory Rate 20 Blood Pressure [Right Arm] 122/63 Blood Pressure Mean [Right Arm] 82 Blood Pressure Source [Right Arm] Automatic Cuff Blood Pressure Position [Right Arm] Sitting 02 Sat by Pulse Oximetry 97 Oxygen Delivery Method Room Air Orders (Tests/Meds): ORDERS Category Date Time Status Ankle XR - Left minimum 3 Views [XR ankle LT min 3V] Exams 08/25/20 19:25 Taken Stat [facility] [place] HPI - General Chief complaint: Urgent [facility] Stated complaint: AO 08/25@1830 drop fence post L Foot Time Seen by Provider: 08/25/20 20:43 Mode of Arrival: Ambulatory Source of Information: Patient Limitations: No Limitations Description of Symptoms (Recalled from Triage Doc. 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 pt states she dropped metal fence post on foot and ankle 1 hour ago. - Related Data Home Medications Medication Instructions Recorded Confirmed aspirin 325 mg tablet 325 mg PO .QDAY tab 05/15/17 05/24/19 pantoprazole 40 mg tablet,delayed 40 mg PO QAM 05/15/17 05/24/19 release atenoloL [Atenolol 50mg Tab] 50 mg PO DAILY 02/13/19 05/24/19 alprazolam 0.25 mg tablet 0.25 mg PO QID tab 05/24/19 05/24/19 atorvastatin 10 mg tablet 10 mg PO DAILY tab 05/24/19 05/24/19 fluticasone propionate 50 2 spray INTRANASAL DAILY 05/24/19 05/24/19 mcg/actuation nasal spray,suspension meclizine 25 mg tablet 25 mg PO BID PRN 05/24/19 05/24/19 Previous Rx's Medication Instructions Recorded carbamazepine 100 mg chewable 100 mg PO BID #60 tab 05/24/19 tablet Benzonatate [Tessalon Perle 100mg 100 mg PO TID #30 cap 06/24/19 Cap] cephALEXin [Keflex 500mg Cap] 500 mg PO TID #30 cap 06/24/19 predniSONE [Prednisone 20mg 20 mg PO BID #10 tab 06/24/19 Tab] Brompheniramine/Pseudoephed/Dm 5 ml PO Q6HP PRN #240 syrup 06/27/19 [Bromfed Dm Cough Syrup] Albuterol Sulfate [Albuterol 2 puffs IH Q6HP PRN 30 Days #1 11/15/19 Sulfate Hfa] hfa.aer.ad Amoxicillin/Potassium Clav 1 tab PO Q12H 10 Days #20 tab 11/15/19 [Augmentin 875-125 Tablet] Allergies Allergy/AdvReac Type Severity Reaction Status Date / Time acetaminophen [From PERCOCET] Allergy Unknown Verified 05/24/19 09:08 azithromycin [AZITHROMYCIN] Allergy Unknown Verifie
[2020-08-25 20:47] VITALS: BP 122/63; PULSE 77; RESP 20; TEMP 37.1; O2SAT 97
== END 2020-08-25 20:54 | disposition home or self-care (01) ==
PROVIDERS: Emergency Provider Nurse Practitioner Family; PCP Internal Medicine
DX: S90.32XA Contusion of left foot, initial encounter (principal); W22.8XXA Striking against or struck by other objects, initial encounter; Y92.73 Farm field as the place of occurrence of the external cause; K21.9 Gastro-esophageal reflux disease without esophagitis; E78.5 Hyperlipidemia, unspecified; E03.9 Hypothyroidism, unspecified; F33.1 Major depressive disorder, recurrent, moderate; F17.210 Nicotine dependence, cigarettes, uncomplicated; Z79.899 Other long term (current) drug therapy
CPT/HCPCS: 73610; 73630; 99202; G0463

== ENCOUNTER 2020-09-05 14:49 | Emergency (ER) | payer BC, SELFPAY ==
[2020-09-05 14:50] VITALS: BP 109/68; PULSE 77; RESP 19; TEMP 37; O2SAT 97; BMI 35.4
--- NOTE | 2020-09-05 14:59 | XR_ITS ---
PROCEDURE: XR FOOT LT MIN 3V CLINICAL INDICATION: PAIN COMPARISON: CR XR FOOT RT MIN 3V from 02/13/2019 CR XR FOOT LT MIN 3V from 08/25/2020 FINDINGS: No fracture or dislocation. No lytic or blastic change. There is normal mineralization. The joint spaces are well-preserved. No significant degenerative/arthritic changes. No erosive changes evident. Other findings:Small calcaneal spur. Achilles enthesophyte noted IMPRESSION: No acute findings. Dictated by: Bonilla Tafoya MD 09/05/2020 15:38 Bonilla Tafoya MD in [place] 09/05/2020 15:38
--- NOTE | 2020-09-05 15:19 | HMH.EDUTC ---
[facility] [place] Impression: Foot contusion Qualifiers: Encounter type: initial encounter Laterality: left Qualified Code(s): S90.32XA - Contusion of left foot, initial encounter Disposition: Home, Self-Care Condition on Discharge: Good Instructions: Contusion, How To Perform RICE (Rest, Ice, Compress, Elevate), How to Use a Walking Boot Additional Instructions: *weight bearing as tolerated *RICE, Rest the extremity, Ice 15-20 minutes 3-4 times daily, Compress- wear the tim wrap as discussed as much as possible to help reduce swelling and pain, Elevate the extremity when at rest *Walking boot is for support and help control swelling, use it except in the shower. Be sure that is not to tight but not to loose either *Elevate when resting *Ibuprofen every 6-8 hours as needed for pain an inflammation. If need something more can take Tylenol in between doses of Ibuprofen to help Immediately follow up with your family doctor for new or worsening of symptoms, or no noticeable improvement over the next 3-5 days Follow up with your Family Doctor or Orthopedics for further evaluation and imaging if pain continues Return if needed Straight to ER if any life threatening symptoms Referrals: Thien Lam [Primary Care Provider] - As needed Dejan Damon MD [Staff Physician] - Time of Disposition: 16:01 Medical Decision Making - Ino Inquiry Pt receiving controlled substance: No Ino was queried for this patient: No Vital Signs: 09/05/20 14:50 Temperature 98.6 F Temperature Source Oral Pulse Rate [Right Brachial] 77 Respiratory Rate 19 Blood Pressure [Right Arm] 109/68 L Blood Pressure Mean [Right Arm] 81 Blood Pressure Source [Right Arm] Automatic Cuff Blood Pressure Position [Right Arm] Sitting 02 Sat by Pulse Oximetry 97 Oxygen Delivery Method Room Air - Radiology Data #1 Image(s): Foot/Toes Image Reviewed: Yes I have reviewed radiologist's interpretation IMPRESSION: No acute findings. [facility] [place] - General Stated complaint: AO [id number] left foot,home injury Time Seen by Provider: 09/05/20 15:19 Mode of Arrival: Ambulatory Source of Information: Patient Limitations: No Limitations Description of Symptoms (Recalled from Triage Doc. by RN): PATIENT C/O LEFT FOOT PAIN SINCE 08/25. ON 08/25 SHE WAS SEEN FOR DROPPING A FENCE POST ON HER LEFT FOOT. HEENT Symptoms (Recalled from RN notes): No Resp Symptoms (Recalled from RN notes): No Skin Symptoms (Recalled from RN notes): No MS Symptoms (Recalled from RN notes): Yes Functional Status (Recalled from RN notes): WNL - History of Present Illness Provider Complaint: Patient state that she has been having pain in the top of her left foot since 08/25/20 after she dropped fence posts on top of her foot State that earlier today she was walking and she felt something pop in the top of her foot and she was still having pain so she came back to have it checked again States that pain has been there since initial accident - Related Data Home Medications Medication Instructions Recorded Confirmed aspirin 325 mg tablet 325 mg PO .QDAY tab 05/15/17 09/05/20 pantoprazole 40 mg tablet,delayed 40 mg PO QAM 05/15/17 09/05/20 release atenoloL [Atenolol 50mg Tab] 50 mg PO DAILY 02/13/19 09/05/20 Allergies Allergy/AdvReac Type Severity Reaction Status Date / Time acetaminophen [From PERCOCET] Allergy Unknown Verified 05/24/19 09:08 azithromycin [AZITHROMYCIN] Allergy Unknown Verified 05/24/19 09:08 butorphanol [From STADOL] Allergy Unknown Verified 05/24/19 09:08 hydrocodone [From LORTAB] Allergy Unknown Verified 05/24/19 09:08 oxycodone [From PERCOCET] Allergy Unknown Verified 05/24/19 09:08 prochlorperazine Allergy Unknown Verified 05/24/19 09:08 [From COMPAZINE] BEE VENOM PROTEIN (HONEY BEE) Allergy Unknown Uncoded 04/01/17 14:26 CLEAR TAPE Allergy Unknown Uncoded 04/01/17 14:26 IV CONTRAST Allergy Unknown Uncoded 04/01/17 14:26 PO CONT
[2020-09-05 16:04] VITALS: BP 109/68; PULSE 77; RESP 19; TEMP 37; O2SAT 97
== END 2020-09-05 16:10 | disposition home or self-care (01) ==
PROVIDERS: Emergency Provider Nurse Practitioner; PCP Internal Medicine
DX: S90.32XA Contusion of left foot, initial encounter (principal); F32.9 Major depressive disorder, single episode, unspecified; E78.5 Hyperlipidemia, unspecified; K21.9 Gastro-esophageal reflux disease without esophagitis
CPT/HCPCS: 29515; 73630; 99202; G0463

== ENCOUNTER → 2020-11-17 09:59 | Outpatient (CLI) | payer BC, SELFPAY ==
[2020-11-17 11:11] LABS: Chloride 105 mmol/L (98-107); Potassium 4.4 mmoL/L (3.5-5.1); Sodium 142 mmol/L (136-145)
[2020-11-17 11:14] LABS: Alanine Aminotransferase 32 U/L (12-78); Albumin Level 4.4 g/dl (3.5-5.0); Albumin/Globulin Ratio 1.5 (1.1-1.8); Alkaline Phosphatase 72 U/L (38-126); Anion Gap 11.4 mEq/L (5-15); Aspartate Amino Transferase 30 U/L (14-36); Bilirubin,Total 0.3 mg/dl (0.2-1.3); Blood Urea Nitrogen 15 mg/dl (7-17); Carbon Dioxide 30 mmol/L (22.0-30.0); Cholesterol 194 mg/dl (140-200); Estimated Glomerular Filt Rate 90 ml/min (>60); GFR (African American) 109 ML/MIN (>60); Globulin 2.9 g/dL (1.3-3.2); Total Protein,Serum 7.3 g/dl (6.3-8.2); Triglycerides 140 mg/dl (30-150); VLDL Cholesterol 28 mg/dL (0-40)
[2020-11-17 11:15] LABS: Calcium 9.8 mg/dl (8.4-10.2); Chol/HDL Ratio 3.7 (1-3.5); Glucose 80 mg/dl (74-100); HDL Cholesterol 52 mg/dl (40-60)
[2020-11-17 11:26] LABS: Direct LDL Cholesterol 113.33 mg/dL (100-129)
[2020-11-17 11:45] LABS: Thyroid Stimulating Hormone 0.35 uIU/mL (0.465-4.68)
[2020-11-19 00:05] LABS: Measles Antibodies, IgG >300.0 AU/mL (Immune >16.4); Mumps Abs, IgG <9.0 AU/mL (Immune >10.9)
[2020-11-21 00:07] LABS: Tetanus Antitoxoid IgG Ab 1.21 IU/mL (<0.10)
[2020-11-21 20:00] LABS: Free T4 (Free Thyroxine) 1.25 ng/dl (0.78-2.19)
== END ==
PROVIDERS: Visit Provider Internal Medicine
DX: E03.9 Hypothyroidism, unspecified (principal); E04.1 Nontoxic single thyroid nodule; E78.5 Hyperlipidemia, unspecified; R53.83 Other fatigue; Z01.84 Encounter for antibody response examination
CPT/HCPCS: 36415; 80053; 80061; 84439; 84443; 86648; 86735; 86762; 86765; 86774

== ENCOUNTER 2020-11-17 17:31 | Emergency (ER) | payer BC, SELFPAY ==
[2020-11-17 17:35] VITALS: BP 148/74; PULSE 80; RESP 18; TEMP 37.3; O2SAT 98; BMI 38.2
[2020-11-17 17:44] VITALS: BMI 38.2
--- NOTE | 2020-11-17 17:45 | XR_ITS ---
PROCEDURE INFORMATION: Exam: XR Lumbosacral Spine Exam date and time: 11/17/20 05:45 PM Age: 45 years old Clinical indication: Low back pain TECHNIQUE: Imaging protocol: XR of the lumbosacral spine. Views: 2 or 3 views. COMPARISON: CR XR LUMBAR SPINE MIN 4V 09/27/19 11:56 AM FINDINGS: Bones/joints: Normal. No acute fracture. Normal alignment. Soft tissues: Unremarkable. IMPRESSION: No acute findings.
--- NOTE | 2020-11-17 17:52 | HMH.EDUTC ---
[facility] [place] Dis[place] Clinical Impression: Low back pain Qualifiers: Chronicity: unspecified Back pain laterality: midline Sciatica presence: without sciatica Qualified Code(s): M54.5 - Low back pain Disposition: Home, Self-Care Condition on Discharge: Good Instructions: Low Back Pain, DI for Low Back Pain, DI for Muscle Spasm Additional Instructions: *Ibuprofen alaina 6 hours with meal as needed for pain/inflammation if your Doctor has said that you can take it *Not additional anti-inflammatory like motrin, aleve, advil with the above amount of ibuprofen. You can still take Tylenol every 4 hours as needed if you need something else for pain *Ice 20 minutes every 2 hours for the first 48 hours after the initial injury followed by moist heat every 20 minutes 3-4 times a day to affected area *Muscle relaxer as prescribed as needed for muscle spasms but remember, it WILL cause drowsiness You cannot take it and drive, operate machinery or care for small children. *Keep this area active, no movement leads to more stiffness, However take it easy and avoid heavy lifting pushing or pulling *Follow up with you family doctor if no improvement for further treatment Prescriptions: methocarbamoL [Methocarbamol] 750 mg PO BID PRN #10 tab PRN Reason: Muscle Spasm Transmission Status: Received by [facility] #[id number] Referrals: Thien Lam [Primary Care Provider] - As needed Forms: Work/School Release Time of Disposition: 18:41 Medical Decision Making - Ino Inquiry Pt receiving controlled substance: No Ino was queried for this patient: No Vital Signs: 11/17/20 17:35 11/17/20 18:45 Temperature 99.1 F 99.1 F Temperature Source Oral Pulse Rate 80 Pulse Rate [Left Brachial] 80 Respiratory Rate 18 18 Blood Pressure 148/74 H Blood Pressure [Right Arm] 148/74 H Blood Pressure Mean [Right Arm] 98 Blood Pressure Source [Right Arm] Automatic Cuff Blood Pressure Position [Right Arm] Sitting 02 Sat by Pulse Oximetry 98 Oxygen Delivery Method Room Air - Radiology Data #1 Image(s): L-Spine Image Reviewed: Yes I have reviewed radiologist's interpretation IMPRESSION: No acute findings. [facility] [place] HPI - General Stated complaint: lower back pain Time Seen by Provider: 11/17/20 17:52 Mode of Arrival: Ambulatory Source of Information: Patient Limitations: No Limitations Description of Symptoms (Recalled from Triage Doc. 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 and she has a history of low back pain Statse that over the last week her back pain has continued to get worse States that hurts when she tries to bend over and earlier she had problems getting off the toilet due to spasm like pain Denies falling denies radiation of pain and denies loss of control of bowel or bladder - Related Data Home Medications Medication Instructions Recorded Confirmed aspirin 325 mg tablet 325 mg PO .QDAY tab 05/15/17 09/05/20 pantoprazole 40 mg tablet,delayed 40 mg PO QAM 05/15/17 09/05/20 release atenoloL [Atenolol 50mg Tab] 50 mg PO DAILY 02/13/19 09/05/20 Previous Rx's Medication Instructions Recorded methocarbamoL [Methocarbamol] 750 mg PO BID PRN #10 tab 11/17/20 Allergies Allergy/AdvReac Type Severity Reaction Status Date / Time acetaminophen [From PERCOCET] Allergy Unknown Verified 05/24/19 09:08 azithromycin [AZITHROMYCIN] Allergy Unknown Verified 05/24/19 09:08 butorphanol [From STADOL] Allergy Unknown Verified 05/24/19 09:08 hydrocodone [From LORTAB] Allergy Unknown Verified 05/24/19 09:08 oxycodone [F
[2020-11-17 18:45] VITALS: BP 148/74; PULSE 80; RESP 18; TEMP 37.3; O2SAT 98
== END 2020-11-17 18:49 | disposition home or self-care (01) ==
PROVIDERS: Emergency Provider Nurse Practitioner; PCP Internal Medicine
DX: M54.5 Low back pain (principal); K21.9 Gastro-esophageal reflux disease without esophagitis; E78.5 Hyperlipidemia, unspecified; F33.1 Major depressive disorder, recurrent, moderate; F17.210 Nicotine dependence, cigarettes, uncomplicated; Z88.5 Allergy status to narcotic agent
CPT/HCPCS: 72100; 99202; G0463

== ENCOUNTER → 2021-02-13 12:20 | Outpatient (CLI) | payer BC, SELFPAY | PROVIDERS: PCP Internal Medicine; Visit Provider Nurse Practitioner | DX: Z20.822 Contact with and (suspected) exposure to COVID-19 (principal) | CPT/HCPCS: C9803; U0003; U0005 ==

== ENCOUNTER 2021-02-19 09:16 | Emergency (ER) | payer BC, SELFPAY ==
[2021-02-19 09:50] VITALS: BP 116/57; PULSE 69; RESP 19; TEMP 36.8; O2SAT 98; BMI 35.4
--- NOTE | 2021-02-19 10:39 | HMH.EDUTC ---
[facility] [place] Impression: Sinusitis Qualifiers: Sinusitis location: unspecified location Chronicity: unspecified Qualified Code(s): J32.9 - Chronic sinusitis, unspecified Disposition: Home, Self-Care Condition on Discharge: Good Instructions: Sinusitis, DI for Sinusitis, Doxycycline Additional Instructions: *Monitor Temp, Over the counter Motrin or Tylenol as directed/as needed Tylenol every 4 hours and Motrin every 6 hours (as long as your family doctor has told you that you can take it) for fever or pain. and straight to ER if unable to lower temp less than 101.0 after medication given *Warm salt water gargles may help to soothe the throat *Throat Lozenges *Warm fluids like tea with honey may help to soothe the throat *Sleep elevated *Humidifier/Vaporizer *Flonase 2 sprays in each nostril daily but be aware that it may take 2-3 days before you notice improvement Take medication as prescribed Return if needed Follow up immediately if no improvement Follow up IMMEDIATELY for new or worsening symptoms or no Noticeable improvement over the next 48-72 hours. 911 for difficulty breathing or swallowing Prescriptions: guaiFENesin [Mucinex 600mg tablet] 1 - 2 tab PO BID PRN 10 Days #20 tab PRN Reason: Congestion Transmission Status: Pending to [facility] # Cefdinir [Omnicef 300mg Capsule] 300 mg PO BID #20 cap Transmission Status: Pending to [facility] # Referrals: Thien Lam [Primary Care Provider] - As needed Forms: Work/School Release Time of Disposition: 10:53 Medical Decision Making - Ino Inquiry Pt receiving controlled substance: No Ino was queried for this patient: No Vital Signs: 02/19/21 09:50 Temperature 98.3 F Temperature Source Oral Pulse Rate [Right Brachial] 69 Respiratory Rate 19 Blood Pressure [Right Arm] 116/57 L Blood Pressure Mean [Right Arm] 76 Blood Pressure Source [Right Arm] Automatic Cuff Blood Pressure Position [Right Arm] Sitting 02 Sat by Pulse Oximetry 98 Oxygen Delivery Method Room Air [facility] [place] - General Stated complaint: sore throat, cough, runny nose,headace, congestion Time Seen by Provider: 02/19/21 10:39 Mode of Arrival: Ambulatory Source of Information: Patient Limitations: No Limitations Description of Symptoms (Recalled from Triage Doc. by RN): PATIENT C/O SORE THROAT, PAIN WITH BREATHING, AND SINUS CONGESTION X 4 DAYS HEENT Symptoms (Recalled from RN notes): Yes Resp Symptoms (Recalled from RN notes): No Skin Symptoms (Recalled from RN notes): No MS Symptoms (Recalled from RN notes): No Functional Status (Recalled from RN notes): WNL - History of Present Illness Provider Complaint: Patient states that she has been having sore scratchy throat, sinus pain and pressure along with cough and hurts at times when she takes a deep breath States that it has continued to get worse over the last four days States that pressure behind her eyes and in her teeth is worse today so she came in to get checked - Related Data Home Medications Medication Instructions Recorded Confirmed aspirin 325 mg tablet 325 mg PO .QDAY tab 05/15/17 02/19/21 pantoprazole 40 mg tablet,delayed 40 mg PO QAM 05/15/17 02/19/21 release simvastatin 20 mg tablet 20 mg PO DAILY tab 12/15/20 12/15/20 Fluticasone/Umeclidin/Vilanter 1 puff IH DAILY 02/19/21 02/19/21 [Trelegy Ellipta 100-62.5-25] atenoloL [Atenolol 50mg Tab] 50 mg PO DAILY 02/19/21 02/19/21 Previous Rx's Medication Instructions Recorded Cefdinir [Omnicef 300mg Capsule] 300 mg PO BID #20 cap 02/19/21 guaiFENesin [Mucinex 600mg tablet] 1 - 2 tab PO BID PRN 10 Days #20 02/19/21 tab Allergies Allergy/AdvReac Type Severity Reaction Status Date / Time acetaminophen [From PERCOCET] Allergy Unknown Verified 12/15/20 08:50 azithromycin [AZITHROMYCIN] Allergy Unknown Verified 12/15/20 08:50 butorphanol [From STADOL] Allergy Unknown Verified 12/15/20 08:50 hydroco
[2021-02-19 10:54] VITALS: BP 116/57; PULSE 69; RESP 19; TEMP 36.8; O2SAT 98
== END 2021-02-19 11:03 | disposition home or self-care (01) ==
PROVIDERS: Emergency Provider Nurse Practitioner; PCP Internal Medicine
DX: J32.9 Chronic sinusitis, unspecified (principal); K21.9 Gastro-esophageal reflux disease without esophagitis; E78.5 Hyperlipidemia, unspecified; F33.1 Major depressive disorder, recurrent, moderate
CPT/HCPCS: 99202; G0463

== ENCOUNTER → 2021-03-16 14:13 | Outpatient (CLI) | payer BC, SELFPAY ==
[2021-03-16 16:27] LABS: Alanine Aminotransferase 36 U/L (12-78); Albumin Level 4.4 g/dl (3.5-5.0); Albumin/Globulin Ratio 1.6 (1.1-1.8); Alkaline Phosphatase 66 U/L (38-126); Anion Gap 9.9 mEq/L (5-15); Aspartate Amino Transferase 37 U/L (14-36); Bilirubin,Total 0.3 mg/dl (0.2-1.3); Blood Urea Nitrogen 16 mg/dl (7-17); Calcium 9.8 mg/dl (8.4-10.2); Carbon Dioxide 30 mmol/L (22.0-30.0); Chloride 103 mmol/L (98-107); Chol/HDL Ratio 3.9 (1-3.5); Cholesterol 204 mg/dl (140-200); Estimated Glomerular Filt Rate 90 ml/min (>60); GFR (African American) 109 ML/MIN (>60); Globulin 2.7 g/dL (1.3-3.2); Glucose 93 mg/dl (74-100); HDL Cholesterol 52 mg/dl (40-60); Potassium 4.9 mmoL/L (3.5-5.1); Sodium 138 mmol/L (136-145); Total Protein,Serum 7.1 g/dl (6.3-8.2); Triglycerides 157 mg/dl (30-150); VLDL Cholesterol 31 mg/dL (0-40)
[2021-03-16 16:38] LABS: Direct LDL Cholesterol 131.87 mg/dL (100-129)
[2021-03-16 16:56] LABS: Thyroid Stimulating Hormone 0.85 uIU/mL (0.465-4.68)
[2021-03-16 17:14] LABS: Vitamin B12 312 pg/mL (239-931)
[2021-03-16 18:05] LABS: Coronavirus 19 IgG Antibody Negative (Negative); Coronavirus 19 IgM Antibody Negative (Negative)
[2021-03-16 18:43] LABS: 25-OH Vitamin D, Total 25.3 ng/mL (30-100)
== END ==
PROVIDERS: Visit Provider Internal Medicine
DX: E04.1 Nontoxic single thyroid nodule (principal); E78.5 Hyperlipidemia, unspecified; E55.9 Vitamin D deficiency, unspecified; E53.8 Deficiency of other specified B group vitamins; Z01.84 Encounter for antibody response examination
CPT/HCPCS: 80053; 80061; 82306; 82607; 84443; 86328

== ENCOUNTER → 2021-07-30 11:48 | Outpatient (CLI) | payer BC, SELFPAY | PROVIDERS: PCP Internal Medicine; Visit Provider Internal Medicine | DX: K52.9 Noninfective gastroenteritis and colitis, unspecified (principal); Z87.19 Personal history of other diseases of the digestive system ==

== ENCOUNTER → 2021-07-31 09:39 | Outpatient (CLI) | payer BC, SELFPAY ==
--- NOTE | 2021-07-31 09:53 | ECG_ITS ---
APPROVED REPORT Exam: Resting ECG HR:65 bpm ECG Measurements Heart Rate 65 AXES NH 161 P 56 QRSd 105 QRS 14 QT 395 T 44 QTc 407 Conclusion SINUS RHYTHM POSSIBLE LEFT ATRIAL ENLARGEMENT [-0.1mV P-WAVE IN V1/V2] Otherwise a normal ekg Electronically signed by : Thien Lam MD 07/31/2021 10:09:04
[2021-07-31 14:19] LABS: Adenovirus F 40/41, stool Not Detected (NotDetected); Astrovirus Not Detected (NotDetected); Campylobacter Not Detected (NotDetected); Clostridium Difficile A/B, PCR Not Detected (NotDetected); Cryptosporidium Not Detected (NotDetected); Cyclospora Cayetanesis Not Detected (NotDetected); Entamoeba histolytica Not Detected (NotDetected); Enteroaggregative E coli Not Detected (NotDetected); Enteropathogenic E coli Not Detected (NotDetected); Enterotoxigenic E coli Not Detected (NotDetected); Giardia lamblia Not Detected (NotDetected); Norovirus Not Detected (NotDetected); Plesimonas Shigalloides, PCR Not Detected (NotDetected); Rotavirus A Not Detected (NotDetected); Salmonella, PCR Not Detected (NotDetected); Sapovirus Not Detected (NotDetected); Shiga-like toxin E coli Not Detected (NotDetected); Shigella Enterovasive E coli Not Detected (NotDetected); Vibrio Cholerae Not Detected (NotDetected); Vibrio, PCR Not Detected (NotDetected); Yersinia Entercolitica, PCR Not Detected (NotDetected)
== END ==
PROVIDERS: PCP Internal Medicine; Visit Provider Internal Medicine
DX: R07.9 Chest pain, unspecified (principal)
CPT/HCPCS: 87177; 87205; 87507; 93005

== ENCOUNTER → 2021-08-08 07:30 | Outpatient (CLI) | payer BC, SELFPAY ==
--- NOTE | 2021-08-08 07:34 | US_ITS ---
FINAL REPORT CLINICAL HISTORY: ABD PAIN FINDINGS: US ABDOMINAL COMPLETE Sonographic images of the abdomen were obtained. The liver has increased echogenicity consistent with fatty infiltration. The gallbladder has an unremarkable appearance without evidence of gallstones. There is no evidence of biliary ductal dilatation. The common hepatic duct measures 2 mm, which is within normal limits. Limited images of the pancreas are unremarkable. The spleen size is normal. The right kidney measures 11.5 cm in length. The left kidney measures 11.5 cm in length. There is normal renal echogenicity. There is no evidence of hydronephrosis. The aorta has an unremarkable appearance. Limited images of the inferior vena cava are unremarkable. IMPRESSION: Fatty liver. Reviewed, Interpreted and Dictated by Shamir Jefferson MD Transcribed by Glenna Busch Authenticated by Shamir Jefferson MD on 08/08/2021 03:28:19 PM [facility]
== END ==
PROVIDERS: PCP Internal Medicine; Visit Provider Internal Medicine
DX: R10.9 Unspecified abdominal pain (principal)
CPT/HCPCS: 76700

== ENCOUNTER 2021-11-04 10:57 | Emergency (ER) | payer BC, MEDICARE, SELFPAY ==
[2021-11-04 11:05] VITALS: BP 144/78; PULSE 96; RESP 18; TEMP 36.6; O2SAT 97; BMI 35.4
--- NOTE | 2021-11-04 11:16 | XR_ITS ---
PROCEDURE INFORMATION: Exam: XR Left Ribs with PA Chest Exam date and time: 11/04/2021 11:53 AM Age: 46 years old Clinical indication: Injury or trauma; Fall; Rib area, left side; Blunt trauma; Additional info: Fall, pain TECHNIQUE: Imaging protocol: Radiologic exam of the Left ribs with PA chest. Views: 3 views COMPARISON: CR XR CHEST 2V 11/19/2019 3:39 PM FINDINGS: Lungs: Unremarkable. No consolidation. Pleural spaces: Unremarkable. No pleural effusion. No pneumothorax. Heart/Mediastinum: Unremarkable. No cardiomegaly. Bones/joints: No acute fracture. Degenerative spondylosis of thoracic spine. Mild facet arthropathy. Acromioclavicular arthropathy. IMPRESSION: Rib fracture or pneumothorax not identified.
--- NOTE | 2021-11-04 11:17 | HMH.EDGENADL ---
ED Disposition Clinical Impression: Fall Qualifiers: Encounter type: initial encounter Qualified Code(s): W19.XXXA - Unspecified fall, initial encounter Contusion of rib on left side Qualifiers: Encounter type: initial encounter Qualified Code(s): S20.212A - Contusion of left front wall of thorax, initial encounter Laceration of forearm, right, complicated Qualifiers: Encounter type: initial encounter Qualified Code(s): S51.811A - Laceration without foreign body of right forearm, initial encounter Disposition: Home, Self-Care Condition on Discharge: Fair Instructions: DI for Laceration Repair, DI for Rib Contusion Additional Instructions: You have been evaluated for fall, right forearm laceration and left ribs contusion. There is no displaced fracture or pneumothorax identified on your x-rays today. Please take Tylenol and Motrin for pain. Use lidocaine patches. Use incentive spirometer to prevent development of pneumonia. Follow-up with your primary care doctor in 1 to 2 days for symptom recheck. Return to the emergency department for any new or worsening symptoms, pain, difficulty breathing, wound drainage, fevers, other concerns. Prescriptions: Hydrocod/Acet 5/325 mg [[place] 5/325mg tablet] 1 tab PO Q6HP PRN #6 tab PRN Reason: Severe Pain Transmission Status: Received by [facility] #[id number] Sulfamethoxazole/Trimethoprim [Sulfamethoxazole-Tmp Ds Tablet] 1 each PO BID #14 tab Transmission Status: Received by [facility] #[id number] Referrals: Thien Lam MD [Primary Care Provider] - Time of Disposition: 12:44 - Critical Care Critical Care Time: No Attestation: On 11/04/21, the high probability of a clinically significant, sudden or life threatening deterioration of the following system(s) required my full and direct attention, intervention and personal management. The time I documented below is in addition to time spent performing reported procedures but includes the following listed in this critical care notation. Medical Decision Making - Medical Records Medical records reviewed: Yes: I reviewed the patient's medical records. - Ino Inquiry Pt receiving controlled substance: No Vital Signs: 11/04/21 11:05 11/04/21 11:24 11/04/21 12:23 Temperature 97.9 F Temperature Source Oral Pulse Rate 91 H 65 Pulse Rate [Left Radial] 96 H Respiratory Rate 18 16 14 Blood Pressure 144/78 H 153/91 H Blood Pressure [Right Arm] 144/78 H Blood Pressure Mean [Right Arm] 100 02 Sat by Pulse Oximetry 97 97 96 Oxygen Delivery Method Room Air 11/04/21 12:56 Temperature 97.9 F Temperature Source Oral Pulse Rate 76 Pulse Rate [Left Radial] Respiratory Rate 18 Blood Pressure 142/81 H Blood Pressure [Right Arm] Blood Pressure Mean [Right Arm] 02 Sat by Pulse Oximetry Oxygen Delivery Method Room Air Orders (Tests/Meds): ED MEDICATIONS Discontinued Medications Generic Name Dose Route Start Last Admin Trade Name Freq PRN Reason Stop Dose Admin Ibuprofen 600 mg 11/04/21 12:41 Ibuprofen 600 Mg Tablet PO 11/04/21 12:42 ONCE ONE Lidocaine 1 each 11/04/21 12:41 Lidocaine 5% Transdermal Patch TP 11/04/21 12:42 ONCE ONE Lidocaine HCl 5 ml 11/04/21 11:16 Lidocaine 1% 10ml Mdv SQ 11/04/21 11:17 ONCE ONE Tetanus/Reduced Diphtheria/Acell Pertussis 0.5 ml 11/04/21 11:17 Tet/Diphth/Pert-Adult 0.5ml Syringe IM 11/04/21 11:18 .ONCE ONE Medical Decision Narrative: Summary this is a 46-year-old upsmg-mtrt-ffxbjeid female presenting to the emergency department with left-sided rib pain and right forearm pain after a fall. Patient clinically stable on arrival. Vital signs within normal limits. Will obtain x-rays of the left ribs. Wound anesthetized. Repaired with sutures. X-ray of the left ribs and chest shows no pneumothorax. There is no large or displaced rib fracture. However, with patient's symptoms I do have lina
[2021-11-04 11:24] VITALS: BP 144/78; PULSE 91; RESP 16; O2SAT 97
--- NOTE | 2021-11-04 11:27 | PC.NURSE ---
at bedside stitching pts arm
--- NOTE | 2021-11-04 12:01 | PC.NURSE ---
pt going to rad
--- NOTE | 2021-11-04 12:08 | PC.NURSE ---
pt back from rad
--- NOTE | 2021-11-04 12:17 | PC.NURSE ---
put non adhesive dressing on pts right wrist and wrapped it in cling wrap
[2021-11-04 12:23] VITALS: BP 153/91; PULSE 65; RESP 14; O2SAT 96
--- NOTE | 2021-11-04 12:50 | PC.NURSE ---
RESP CALLED FOR INCENTIVE SPIROMETRY
--- NOTE | 2021-11-04 12:53 | PC.NURSE ---
respitory in room
[2021-11-04 12:56] VITALS: BP 142/81; PULSE 76; RESP 18; TEMP 36.6; O2SAT 97
== END 2021-11-04 12:58 | disposition home or self-care (01) ==
PROVIDERS: Emergency Provider Emergency Medicine; PCP Internal Medicine
DX: S20.212A Contusion of left front wall of thorax, initial encounter (principal); S51.811A Laceration without foreign body of right forearm, initial encounter; W18.39XA Other fall on same level, initial encounter; Y93.H2 Activity, gardening and landscaping; Y92.096 Garden or yard of other non-institutional residence as the place of occurrence of the external cause; Z88.6 Allergy status to analgesic agent; Z88.1 Allergy status to other antibiotic agents; Z91.030 Bee allergy status; Z91.041 Radiographic dye allergy status; Z91.038 Other insect allergy status; E78.5 Hyperlipidemia, unspecified; K21.9 Gastro-esophageal reflux disease without esophagitis; E07.9 Disorder of thyroid, unspecified; F32.A Depression, unspecified
CPT/HCPCS: 12002; 71101; 99283

== ENCOUNTER → 2022-03-04 12:49 | Outpatient (CLI) | payer BC, SELFPAY ==
--- NOTE | 2022-03-04 13:22 | CT_ITS ---
FINAL REPORT TECHNIQUE: Axial imaging of the chest was obtained without contrast. Reformatted images were also obtained and reviewed.This study was performed with techniques to keep radiation doses as low as reasonably achievable, (ALARA). Individualized dose reduction technique using automated exposure control or adjustment of mA and/or kV according to the patient's size were employed. CLINICAL HISTORY: DYSPNEA ON EXERTION/LUNG NODULE FU COMPARISON: 11/02/2019 FINDINGS: Several, small right breast nodules are unchanged. There is a stable, 18 mm right thyroid nodule. There is no axillary adenopathy. There is no hilar or mediastinal mass or adenopathy. Heart size is normal. There is no pericardial or pleural effusion. Small precarinal lymph node is unchanged. 7 mm pulmonary nodule in the superior segment of the right lower lobe seen on image number 40 is unchanged. There are calcified granulomas noted in the left lower lobe. No new mass or nodule is seen. No suspicious infiltrate or nodule is identified on lung window images. Limited imaging of the upper abdomen demonstrates fatty infiltration of the liver. The left adrenal gland is enlarged, favor benign. IMPRESSION: No acute process. Stable thyroid and pulmonary nodules as above. Reviewed, Interpreted and Dictated by Jaime Parker III, MD Transcribed by Ana Up Authenticated and [facility]
== END ==
LOC: RT 12:51
PROVIDERS: PCP Internal Medicine; Visit Provider Internal Medicine
DX: R06.09 Other forms of dyspnea (principal); R91.1 Solitary pulmonary nodule
CPT/HCPCS: 71250; 93306

== ENCOUNTER 2023-09-10 11:35 | Outpatient (CLI) | payer BC, SELFPAY ==
[2023-09-12 22:08] LABS: QuantiFERON-TB Gold Plus Positive (Negative)
== END 2023-09-10 23:59 | disposition home or self-care (01) ==
LOC: LAB 11:37
PROVIDERS: PCP Internal Medicine; Visit Provider Internal Medicine
DX: Z11.1 Encounter for screening for respiratory tuberculosis (principal)
CPT/HCPCS: 36415; 86480

== ENCOUNTER 2023-09-14 08:54 | Emergency (ER) | payer BC, SELFPAY ==
[2023-09-14 09:00] VITALS: BP 157/82; PULSE 66; RESP 18; TEMP 36.5; O2SAT 98; BMI 41.0
--- NOTE | 2023-09-14 09:06 | XR_ITS ---
PROCEDURE INFORMATION: Exam: XR Chest Exam date and time: 09/14/2023 9:02 AM Age: 48 years old Clinical indication: Other: Positive tb test TECHNIQUE: Imaging protocol: Radiologic exam of the chest. Views: 2 views. COMPARISON: CT CHEST WO CON 03/04/2022 1:27 PM FINDINGS: Lungs: Unremarkable. No consolidation. Pleural spaces: Unremarkable. No pleural effusion. No pneumothorax. Heart/Mediastinum: Unremarkable. No cardiomegaly. Bones/joints: Unremarkable. IMPRESSION: No acute findings.
--- NOTE | 2023-09-14 09:16 | EXP.UTC ---
Discharge Plan Disposition Patient Disposition: Home, Self-Care Condition: Good Prescriptions Prescriptions: No Action simvastatin 20 mg tablet 20 mg PO DAILY aspirin 325 mg tablet 325 mg PO .QDAY pantoprazole [Protonix] 40 mg tablet,delayed release (DR/EC) 40 mg PO QAM atenolol 50 MG tablet 50 mg PO DAILY pebkqjvcxzk-qxpofxgdp-qaaqpain 1 EACH blister with device 1 puff IH DAILY Zepbound 2.5 mg/0.5 mL pen injector See Rx Instructions .ROUTE .COMPLEX Rx Instructions: see rx instructions Referrals Follow up/Referrals: Thien Lam MD [Primary Care Provider] - See instructions Activity Restrictions/Add. Instructions Additional Instructions/Restrictions: Call medical records tomorrow to get the official reading of your chest x-ray for your employer. Follow up with your regular doctor. GO TO THE ER FOR ANY WORSENING SYMPTOMS Clinical Impressions Clinical Impression: Encounter for screening for respiratory tuberculosis Instructions Patient Instructions: Chest X-ray Discharge ED Provider: Hermes Montesinos [facility] General Stated complaint: follow up for blood work Mode of Arrival: Ambulatory Source of Information: Patient Limitations: No Limitations Time Seen by Provider: 09/14/23 09:16 Description of Symptoms (Recalled from Triage Doc. by RN): Pt had blood work done on 09/10/2023 had a positive TB done. She wants to talk to the provider and have a chest xray. She is not having any symptoms. HEENT Symptoms (Recalled from RN notes): No Resp Symptoms (Recalled from RN notes): No Skin Symptoms (Recalled from RN notes): No MS Symptoms (Recalled from RN notes): No Functional Status (Recalled from RN notes): n/a History of Present Illness Provider Complaint: She had to have a blood test for tb exposure for her employer. Her test came back positive. She denies any cough, congestion, fever, or any other symptoms. She needs a chest x-ray for her employer now. Related Data Home Medications Medication Instructions Recorded Confirmed aspirin 325 mg tablet 325 mg PO .QDAY Heart rhythm 05/15/17 09/14/23 pantoprazole 40 mg tablet,delayed 40 mg PO QAM GERD 05/15/17 09/14/23 release (Protonix) simvastatin 20 mg tablet 20 mg PO DAILY Cholesterol 12/15/20 09/14/23 atenolol 50 mg tablet 50 mg PO DAILY Hypertension 02/19/21 09/14/23 fluticasone fur. 100 mcg-umeclid 1 puff IH DAILY COPD 02/19/21 02/19/21 62.5 mcg-vilant 25 mcg inhalat.powder tirzepatide (weight loss) 2.5 See Rx Instructions .Route .COMPLEX 09/14/23 09/14/23 mg/0.5 mL subcutaneous pen injector (Zepbound) Allergies Allergy/AdvReac Type Severity Reaction Status Date / Time acetaminophen [From PERCOCET] Allergy Unknown Verified 09/14/23 09:16 azithromycin [AZITHROMYCIN] Allergy Unknown Verified 09/14/23 09:16 butorphanol [From STADOL] Allergy Unknown Verified 09/14/23 09:16 hydrocodone [From LORTAB] Allergy Unknown Verified 09/14/23 09:16 oxycodone [From PERCOCET] Allergy Unknown Verified 09/14/23 09:16 prochlorperazine Allergy Unknown Verified 09/14/23 09:16 [From COMPAZINE] BEE VENOM PROTEIN (HONEY BEE) Allergy Unknown Uncoded 04/01/17 14:26 CLEAR TAPE Allergy Unknown Uncoded 04/01/17 14:26 IV CONTRAST Allergy Unknown Uncoded 04/01/17 14:26 PO CONTRAST Allergy Unknown Uncoded 04/01/17 14:26 WASP,PAPER Allergy Unknown Uncoded 04/01/17 14:26 Worker's Comp Is this a Worker's Comp case?: No [facility] Disclaimer: The information contained in this section may have been updated after the patient was seen, as this information can be updated by other users. Social History Smoking Status: Current every day smoker tobacco type: cigarettes packs per day: 1 second hand exposure: No alcohol intake: never substance use type: denies use current occupational status: other Travel in the last 8 weeks: None housing: house ROS Obtained: Yes All systems reviewed & no additional complaints except as documented Constitutional Constitutional: Denies chills and Denies fever(s) Eyes Eyes: Denies eye discharge ENT Ears, Nose, Mouth, and Throat: Denies dizziness, Denies otalgia and Denies sore throat Cardiovascular Cardiovascular: Denies chest pain Respiratory Respiratory: Denies shortness of breath, Denies chest congestion, Denies cough, Denies stridor and Denies wheezing Gastrointestinal Gastrointestingal: Denies nausea or vomiting Musculoskeletal Musculoskeletal: Reports system reviewed and no additional complaints, except as documented and Denies arthralgias Integumentary/Breasts Skin/Breast: Denies rash Neurologic Neurologic: Denies dizziness and Denies paresthesias Allergic/Immunologic Allergic/Immunologic: Denies wheezing Physical Exam General General appearance: alert and in no apparent distress Head Head exam: atraumatic, normocephalic and normal inspection Eye Eye exam: Present normal appearance, PERRL and EOMI ENT ENT exam: Present normal exam, normal oropharynx, mucous membranes moist, TM's normal bilaterally and normal external ear exam Neck Neck exam: Present normal inspection, full ROM and trachea midline; Absent meningismus or lymphadenopathy Chest Chest inspection: Present normal inspection and symmetric chest wall rise; Absent tenderness Respiratory Respiratory exam: Present normal lung sounds bilaterally; Absent respiratory distress Cardiovascular Cardiovascular exam: Present regular rate and normal rhythm; Absent JVD Abdominal Exam Abdominal exam: Present soft and normal bowel sounds; Absent distention, tenderness or guarding Extremities Exam Extremities exam: Present normal inspection, full ROM and normal capillary refill; Absent calf tenderness Back Exam Back exam: Present normal inspection; Absent tenderness Neurological Exam Neurological exam: Present alert and oriented X3 Psychiatric Psychiatric exam: Present normal affect and normal mood Skin Skin exam: Present warm, dry, intact and normal color Lymphatic Lymphatic Findings: no adenopathy Medical Decision Making Medical Records Medical records reviewed: No I reviewed the patient's medical records. Ino Inquiry Pt receiving controlled substance: No Vital Signs: 09/14/23 09:00 Temperature 97.7 F Temperature Source Oral Pulse Rate [Right Radial] 66 Respiratory Rate 18 Blood Pressure [Right Arm] 157/82 H Blood Pressure Mean [Right Arm] 107 Blood Pressure Source [Right Arm] Automatic Cuff Blood Pressure Position [Right Arm] Sitting 02 Sat by Pulse Oximetry 98 Oxygen Delivery Method Room Air Orders (Tests/Meds): ORDERS Category Date Time Status Chest XR 2 view (NOT portable) [XR chest 2V] Stat Exams 09/14/23 09:06 Ordered Radiology Data #1: Image(s): Chest Image Reviewed: Yes I reviewed the patient's radiology image and Yes I have reviewed radiologist's interpretation Preliminary Findings: Normal/NAD Accession No. 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 Views: 2 views. COMPARISON: CT CHEST WO CON 03/04/2022 1:27 PM FINDINGS: Lungs: Unremarkable. No consolidation. Pleural spaces: Unremarkable. No pleural effusion. No pneumothorax. Heart/Mediastinum: Unremarkable. No cardiomegaly. Bones/joints: Unremarkable. IMPRESSION: No acute findings.
[2023-09-14 09:34] VITALS: BP 157/82; PULSE 66; RESP 18; TEMP 36.5; O2SAT 98
== END 2023-09-14 09:34 | disposition home or self-care (01) ==
PROVIDERS: Emergency Provider Nurse Practitioner Family; PCP Internal Medicine
DX: Z11.1 Encounter for screening for respiratory tuberculosis (principal); R76.8 Other specified abnormal immunological findings in serum
CPT/HCPCS: 71046; 99212; 99213; G0463

== ENCOUNTER 2024-01-21 08:33 | Outpatient (CLI) | payer BC, SELFPAY ==
--- NOTE | 2024-01-21 08:37 | CT_ITS ---
FINAL REPORT TECHNIQUE: Axial images were obtained from the lung apex to the mid abdomen by computed tomography. Coronal reformatted images were obtained. This study was performed with techniques to keep radiation doses as low as reasonably achievable, (ALARA). Individualized dose reduction techniques using automated exposure control or adjustment of mA and/or kV according to the patient''s size were employed. CLINICAL HISTORY: Lung nodules, follow-up COMPARISON: 03/04/2022 FINDINGS: There is a 21 mm right thyroid lobe nodule which previously measured 18 mm. Small mediastinal nodes are noted. No axillary mass or adenopathy is seen.There is no pericardial or pleural effusion. There is a stable 7 mm nodule in the posterior right lower lobe seen on series 2 image 40. Calcified granulomas are seen in the left lower lobe. There is no new mass or nodule. No localized pulmonary inflammatory process is noted. The chest wall is intact.Limited images of the upper abdomen demonstrate fatty infiltration of the liver. There is stable, bilateral adrenal gland enlargement which may represent adenomas or hyperplasia. IMPRESSION: Stable right lung nodule. Slightly enlarged right thyroid lobe nodule. Consider follow-up thyroid ultrasound. Reviewed, Interpreted and Dictated by Jaime Parker III, MD Transcribed by Dionna Gomez Authenticated and [facility] [place]
== END 2024-01-21 23:59 | disposition home or self-care (01) ==
LOC: RAD 08:34
PROVIDERS: PCP Internal Medicine; Visit Provider Nurse Practitioner Family
DX: R91.8 Other nonspecific abnormal finding of lung field (principal)
CPT/HCPCS: 71250

== ENCOUNTER 2024-01-24 08:12 | Emergency (ER) | payer BC, SELFPAY ==
[2024-01-24 08:21] VITALS: BP 112/69; PULSE 70; RESP 20; TEMP 36.6; O2SAT 98; BMI 38.9
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
--- NOTE | 2024-01-24 08:26 | XR_ITS ---
PROCEDURE INFORMATION: Exam: XR Left Foot Exam date and time: 01/24/2024 8:22 AM Age: 48 years old Clinical indication: Injury or trauma; Fall; Blunt trauma; Foot; Left; Additional info: Injury and bruising on top of foot TECHNIQUE: Imaging protocol: Radiologic exam of the left foot. Views: 3 or more views. COMPARISON: CR XR FOOT LT MIN 3V 09/05/2020 3:01 PM FINDINGS: Bones/joints: There is no evidence of acute fracture.There is no evidence of malalignment or dislocation. Soft tissues: Normal. IMPRESSION: There is no evidence of acute fracture.There is no evidence of malalignment or dislocation.
[2024-01-24 09:29] VITALS: BP 112/69; PULSE 70; RESP 20; TEMP 36.6
== END 2024-01-24 09:32 | disposition home or self-care (01) ==
PROVIDERS: Emergency Provider Nurse Practitioner Family; PCP Internal Medicine
DX: M79.672 Pain in left foot (principal)
CPT/HCPCS: 73630; 99213; G0381

== ENCOUNTER 2024-06-23 16:27 | Outpatient (CLI) | payer BC, SELFPAY ==
[2024-06-23 15:17] LABS: Basophils # 0.1 K/mm3 (0-0.2); Basophils % 0.7 % (0.1-2.0); Eosinophils # 0.2 K/mm3 (0.0-0.4); Eosinophils % 2.5 % (0.1-12.0); Hematocrit 44.3 % (37.0-47.0); Hemoglobin 14.3 g/dL (12.2-16.2); Lymphocytes # 2.3 K/mm3 (0.7-4.5); Lymphocytes % 34.1 % (10-50); Mean Corpuscular HGB Conc 32.3 g/dL (31.8-35.4); Mean Corpuscular Hemoglobin 26.6 pg (27.0-31.2); Mean Corpuscular Volume 82.3 fl (81-99); Mean Platelet Volume 9.9 fl (7.4-10.4); Monocytes # 0.7 K/mm3 (0.1-1.0); Monocytes % 9.7 % (1.7-9.3); Neutrophils # 3.6 K/mm3 (1.8-7.8); Neutrophils % 52.9 % (37.0-80.0); Platelet Count 358 K/mm3 (142-424); Red Blood Count 5.38 M/mm3 (4.20-5.40); Red Cell Distribution Width 15.9 % (11.5-17.5); White Blood Count 6.8 K/mm3 (4.8-10.8)
[2024-06-23 15:48] LABS: Alanine Aminotransferase 48 U/L (12-78); Albumin Level 4.6 g/dl (3.5-5.0); Albumin/Globulin Ratio 1.8 (1.1-1.8); Alkaline Phosphatase 70 U/L (38-126); Anion Gap 10.7 mEq/L (5-15); Aspartate Amino Transferase 42 U/L (14-36); Bilirubin,Total 0.2 mg/dl (0.2-1.3); Blood Urea Nitrogen 19 mg/dl (7-17); Calcium 9.6 mg/dl (8.4-10.2); Carbon Dioxide 29 mmol/L (22.0-30.0); Chloride 105 mmol/L (98-107); Chol/HDL Ratio 5.9 (1-3.5); Cholesterol 255 mg/dl (140-200); Estimated Glomerular Filt Rate 106 ml/min (>60); GFR (African American) 128 ML/MIN (>60); Globulin 2.5 g/dL (1.3-3.2); Glucose 92 mg/dl (74-100); HDL Cholesterol 43 mg/dl (40-60); Potassium 4.7 mmoL/L (3.5-5.1); Sodium 140 mmol/L (136-145); Total Protein,Serum 7.1 g/dl (6.3-8.2); Triglycerides 192 mg/dl (30-150); VLDL Cholesterol 38 mg/dL (0-40)
[2024-06-23 15:54] LABS: Hemoglobin A1C 6.4 % (4.0-6.0)
[2024-06-23 15:59] LABS: Direct LDL Cholesterol 155.24 mg/dL (100-129)
[2024-06-23 16:03] LABS: Free T4 (Free Thyroxine) 1.28 ng/dl (0.78-2.19)
[2024-06-23 16:17] LABS: Thyroid Stimulating Hormone 0.16 uIU/mL (0.465-4.68)
[2024-07-15 01:08] LABS: 1,25 Dihydroxy Vitamin D 80 pg/mL (.); 1,25-Dihydroxy, Vitamin D-2 25 pg/mL (.); 1,25-Dihydroxy, Vitamin D-3 55 pg/mL (.)
== END 2024-06-23 23:59 | disposition home or self-care (01) ==
LOC: LAB.DROPOF 16:28
PROVIDERS: PCP Internal Medicine; Visit Provider Internal Medicine
DX: R53.83 Other fatigue (principal); E04.1 Nontoxic single thyroid nodule; E55.9 Vitamin D deficiency, unspecified; I10 Essential (primary) hypertension; E78.00 Pure hypercholesterolemia, unspecified; R73.02 Impaired glucose tolerance (oral)
CPT/HCPCS: 36415; 80053; 80061; 82652; 83036; 84439; 84443; 85025

== ENCOUNTER 2024-07-09 06:52 | Outpatient (CLI) | payer BC, SELFPAY ==
--- NOTE | 2024-07-09 06:56 | CT_ITS ---
FINAL REPORT TECHNIQUE: Axial images through the abdomen and pelvis were performed without contrast. This study was performed with techniques to keep radiation doses as low as reasonably achievable, (ALARA). Individualized dose reduction techniques using automated exposure control or adjustment of mA and/or kV according to the patient's size were employed. CLINICAL HISTORY: Abnormal adrenal glands on CT of chest COMPARISON: 07/23/2018 FINDINGS: Abdomen: There are calcified granulomas at the left lung base. Moderate fatty infiltration of the liver is noted. The gallbladder is present. The spleen and pancreas are unremarkable. Bilateral adrenal hyperplasia is stable compared to 2019. The kidneys are unremarkable. Pelvis: The urinary bladder is incompletely distended. The appendix is is unremarkable. There are scattered diverticula in the sigmoid colon. There is no pelvic mass or inflammation. IMPRESSION: Stable bilateral adrenal hyperplasia. Fatty liver. Reviewed, Interpreted and Dictated by Shamir Jefferson MD Transcribed by Maryann Celeste Authenticated and [facility]
--- NOTE | 2024-07-09 06:56 | XR_ITS ---
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 The heart size is normal. The mediastinum is within normal limits. There is no acute cardiopulmonary process. Small calcified granulomas are noted. There are no pleural effusions. There is no pneumothorax. The bony thorax appears intact. IMPRESSION: No acute cardiopulmonary process. Reviewed, Interpreted and Dictated by Shamir Jefferson MD Transcribed by Maryann Celeste Authenticated and [facility]
--- NOTE | 2024-07-09 06:56 | CT_ITS ---
FINAL REPORT TECHNIQUE: Thin section axial CT images with coronal and sagittal reformats were performed through the neck. This study was performed with techniques to keep radiation doses as low as reasonably achievable (ALARA). Individualized dose reduction techniques using automated exposure control or adjustment of mA and/or kV according to the patient''s size were employed. CLINICAL HISTORY: Lymphadenopathy right neck COMPARISON: None FINDINGS: The paranasal sinuses are well aerated. There are multiple small scattered cervical lymph nodes. No dominant mass or pathologically enlarged nodes are noted. There is a complex low-attenuation lesion in the right lobe of the thyroid measuring 2.2 x 2.0 cm. Recommend thyroid ultrasound to better characterize. Incidental note is made of endplate hypertrophic changes at C5-6 with bilateral neuroforaminal narrowing, right greater than left. IMPRESSION: No dominant mass or pathologically enlarged cervical lymph nodes. Right thyroid lesion. Recommend thyroid ultrasound to better characterize. Reviewed, Interpreted and Dictated by Shamir Jefferson MD Transcribed by Maryann Celeste Authenticated and [facility]
== END 2024-07-09 23:59 | disposition home or self-care (01) ==
LOC: RAD 06:54
PROVIDERS: PCP Internal Medicine; Visit Provider Internal Medicine
DX: Q89.1 Congenital malformations of adrenal gland (principal); D35.01 Benign neoplasm of right adrenal gland; D35.02 Benign neoplasm of left adrenal gland; R76.12 Nonspecific reaction to cell mediated immunity measurement of gamma interferon antigen response without active tuberculosis; R59.1 Generalized enlarged lymph nodes
CPT/HCPCS: 70490; 71046; 74176

== ENCOUNTER 2024-07-19 14:45 | Outpatient (CLI) | payer BC, SELFPAY ==
--- NOTE | 2024-07-19 15:00 | US_ITS ---
FINAL REPORT TECHNIQUE: Sonographic images of the thyroid were obtained. CLINICAL HISTORY: Right thyroid lesion seen on CT scan of the neck FINDINGS: THYROID ULTRASOUND The right thyroid gland measures 4.9 x 2.4 x 2.7 cm. The parenchyma shows normal echogenicity. In the upper pole of the right lobe is a 1.7 x 2.0 cm lesion containing cyst in the internal region. This is consistent with a TI-RADS 3 nodule. There is a complex nodule in the mid right lobe measuring 2.2 x 1.6 cm consistent with a TI-RADS 3 nodule. There is a 0.9 x 0.7 hypoechoic TI-RADS 4 nodule in the right lobe. The left thyroid gland measures 4.5 x 1.9 x 1.7 cm. The parenchyma shows normal echogenicity. A hypoechoic focus in the superior pole of the left lobe measures 2.1 x 1.7 cm. This is consistent with a TI-RADS 3 nodule. There are multiple subcentimeter TI-RADS 4 nodules throughout the left lobe. IMPRESSION: TI-RADS 3 lesions measuring less than 2.5 cm. Findings are favored to represent a multinodular goiter. Follow-up in 1 year is recommended. Reviewed, Interpreted and Dictated by Shamir Jefferson MD Transcribed by Dionna Gomez Authenticated and [facility]
== END 2024-07-19 23:59 | disposition home or self-care (01) ==
LOC: RAD 14:46
PROVIDERS: PCP Internal Medicine; Visit Provider Internal Medicine
DX: E07.9 Disorder of thyroid, unspecified (principal)
CPT/HCPCS: 76536

== ENCOUNTER 2024-09-09 10:45 | Outpatient (CLI) | payer BC, SELFPAY ==
--- NOTE | 2024-09-09 11:00 | CA_ITS ---
APPROVED REPORT Exam: Exercise Treadmill Technologist: Vanesa Hyde Ht: 5 ft 2 in Wt: 225 lbs BSA: 2.01 m2 Medical History Medications: alprazolam, aspirin, atenolol, flonase, pantoprazole, simvastatin. Stress Test Details HR Resting HR: 81 bpm Max Heart Rate (APMHR): 170 bpm Max HR Achieved: 151 bpm Target HR (85% APMHR): 145 bpm % of APMHR: 89 Recovery HR: 94 bpm HR response to stress: Normal HR response to stress BP Resting BP: 130.0/55.0 mmHg Max BP: 198.0/82.0 mmHg Recovery BP: 142.0/79.0 mmHg BP response to stress: Borderline hypertensive BP response to exercise ECG Clinical Exercise duration: 5.45 min Highest Stage Achieved: II Exercise capacity: 7.1 METs Stress ECG Conclusion Symptoms: SOA with peak exercise. Arrhythmias/Ectpy: None. ST-T Changes: 0.[address] depression. Conclusion: Average exercise capacity. Borderline hypertensive BP response to exercise. BP control is recommended. No evidence of ischemia on ECG at peak stress. Electronically signed by : Seema Logan MD 09/11/2024 21:04:45
== END 2024-09-09 23:59 | disposition home or self-care (01) ==
LOC: RT 10:46
PROVIDERS: PCP Internal Medicine; Visit Provider Internal Medicine
DX: I16.0 Hypertensive urgency (principal); R94.31 Abnormal electrocardiogram [ECG] [EKG]
CPT/HCPCS: 93017; 93018